=== PATIENT | male | born 1970 | race Caucasian/White ===

== ENCOUNTER → 2022-03-14 13:06 | Outpatient (REF) | payer MEDICARE, MEDICAID, SELFPAY | LOC: HO.SL 13:06 | PROVIDERS: Visit Provider Hospitalist | DX: Z13.89 Encounter for screening for other disorder (principal) ==

== ENCOUNTER → 2022-11-29 15:06 | Outpatient (REF) | payer MEDICAID, SELFPAY | LOC: HO.SL 15:06 | PROVIDERS: PCP Hospitalist; Visit Provider Hospitalist | DX: G47.33 Obstructive sleep apnea (adult) (pediatric) (principal); R06.83 Snoring | CPT/HCPCS: 95806 ==

== ENCOUNTER → 2022-12-28 19:30 | Outpatient (REF) | payer MEDICAID, SELFPAY | LOC: HO.SL 19:30 | PROVIDERS: PCP Hospitalist; Visit Provider Hospitalist | DX: G47.33 Obstructive sleep apnea (adult) (pediatric) (principal) | CPT/HCPCS: 95811 ==

== ENCOUNTER 2023-05-28 07:45 | Outpatient (AMB) | payer MEDICAID, SELFPAY ==
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
[2023-05-28 08:05] VITALS: BP 119/76; PULSE 80; BMI 34.2
== END 2023-05-28 08:52 | disposition home or self-care (01) ==
PROVIDERS: PCP Hospitalist; Visit Provider Nurse Practitioner Family
DX: Z12.11 Encounter for screening for malignant neoplasm of colon (principal); Z01.818 Encounter for other preprocedural examination
CPT/HCPCS: 99203

== ENCOUNTER → 2023-05-28 07:45 | Outpatient (BNVA) | payer MEDICAID, SELFPAY | PROVIDERS: PCP Hospitalist; Visit Provider Nurse Practitioner Family | DX: Z12.11 Encounter for screening for malignant neoplasm of colon (principal) | CPT/HCPCS: 99212 ==

== ENCOUNTER 2023-08-30 09:45 | Day surgery (SDC) | payer MEDICARE, MEDICAID, SELFPAY ==
[2023-08-28 14:27] VITALS: BMI 33.8
--- NOTE | 2023-08-29 12:40 | P.CONAN_ITS ---
Documented by User: Wendy Finn NP 08/29/23 12:40 HPI - Anesthesia Eval Consult details Narrative: 53yo M for Colonoscopy [facility] resident Anesthesia Pre-Procedure Meds Is the patient on any of the following meds?: Dulaglutide (Trulicity) [facility] Active Problems Active Problems: All Active Problems (Updated 08/28/23 @ 14:26 by Araceli Fatima RN) Personal history of traumatic brain injury (Acute) Frontal lobe and executive function deficit (Acute) Past Medical History Medical History Resides in detention facility Low back pain Slow transit constipation Benign localized hyperplasia of prostate Snoring Hypermetropia, bilateral Presbyopia Other hyperlipidemia Age-related nuclear cataract, bilateral Type 2 diabetes mellitus Hypothyroidism Obstructive sleep apnea Spinal stenosis Cocaine abuse Alcohol abuse Restlessness and agitation Personal history of other diseases of the respiratory system Personal history of healed traumatic fracture Personal history of traumatic brain injury 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 If so, by whom?: No Are you DNR?: No Advance Directives: Yes (guardianship) Advance Directives Information Provided: Yes Advance Directives on File: Yes Advance Directives Date on File: 08/28/23 Recently lost weight without trying: No Eating poorly because of decreased appetite: No Nutrition Risks: No Nutritional Risk Meds Allergies Allergy/AdvReac Type Severity Reaction Status Date / Time almond Allergy Mild Hives Verified 08/30/23 10:18 peach Allergy Mild Hives Verified 08/30/23 10:18 Home Medications Medication Instructions Recorded Confirmed Last Taken Type acetaminophen 325 mg capsule 325 mg PO QID PRN Pain 05/28/23 08/28/23 Unknown History atorvastatin 10 mg tablet (Lipitor) 10 mg PO DAILY 05/28/23 08/28/23 Unknown History calcium carbonate 500 mg calcium 500 mg PO DAILY 05/28/23 08/28/23 Unknown History (1,250 mg) chewable tablet divalproex 250 mg tablet,delayed 250 mg PO BEDTIME 05/28/23 08/28/23 Unknown History release divalproex 500 mg tablet,delayed 500 mg PO BID 05/28/23 08/28/23 Unknown History release dulaglutide 0.75 mg/0.5 mL 0.75 mg subcut QWEEK 05/28/23 08/28/23 Unknown History subcutaneous pen injector (Trulicity) gemfibrozil 600 mg tablet 600 mg PO BID 05/28/23 08/28/23 Unknown History insulin glargine 100 unit/mL 20 unit subcut BID 05/28/23 08/28/23 Unknown History subcutaneous solution (Lantus U-100 Insulin) insulin lispro 100 unit/mL 1 sliding scale dose subcut 05/28/23 08/28/23 Unknown History subcutaneous solution (Humalog USEASDIRECTD U-100 Insulin) levothyroxine 25 mcg tablet 25 mcg PO DAILY 05/28/23 08/28/23 Unknown History (Synthroid) metformin 1,000 mg tablet 1,000 mg PO DAILY 05/28/23 08/28/23 Unknown History omeprazole 20 mg capsule,delayed 20 mg PO DAILY 05/28/23 08/28/23 Unknown History release propranolol 60 mg capsule,24 60 mg PO DAILY 05/28/23 08/28/23 Unknown History hr,extended release (Inderal LA) sennosides 8.6 mg tablet (senna) 8.6 mg PO DAILY 05/28/23 08/28/23 Unknown History sodium phosphates 19 gram-7 118 ml MO BEDTIME PRN Constipation 05/28/23 08/28/23 Unknown History gram/118 mL enema (Fleet Enema) tamsulosin 0.4 mg capsule 0.4 mg PO DAILY 05/28/23 08/28/23 Unknown History trazodone 100 mg tablet 100 mg PO BEDTIME PRN Insomnia 05/28/23 08/28/23 Unknown History Exam Height,Weight and Vital Signs: Height 6 ft Weight 112.945 kg Assessment and Plan Assessment Anesthesia Assessment: Chart Reviewed Documented by User: Jeannie Boo MD 08/30/23 10:31 HPI - Anesthesia Eval Anesthesia Pre-Procedure Meds If Yes to any meds - educate patient: Pt education - increased risk of aspiration and Pt education - possibility of cancelled proc at provider's discretion PMFSH Past Medical History Medical History Resides in detention facility Low back pain Slow transit constipation Benign localized hyperplasia of prostate Snoring Hypermetropia, bilateral Presbyopia Other hyperlipidemia Age-related nuclear cataract, bilateral Type 2 diabetes mellitus Hypothyroidism Obstructive sleep apnea Spinal stenosis Cocaine abuse Alcohol abuse Restlessness and agitation Personal history of other diseases of the respiratory system Personal history of healed traumatic fracture Personal history of traumatic brain injury 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 If so, by whom?: No Are you DNR?: No Advance Directives: Yes (guardianship) Advance Directives Information Provided: Yes Advance Directives on File: Yes Advance Directives Date on File: 08/28/23 Recently lost weight without trying: No Eating poorly because of decreased appetite: No Nutrition Risks: No Nutritional Risk Meds Allergies Allergy/AdvReac Type Severity Reaction Status Date / Time almond Allergy Mild Hives Verified 08/30/23 10:18 peach Allergy Mild Hives Verified 08/30/23 10:18 Home Medications Medication Instructions Recorded Confirmed Last Taken Type acetaminophen 325 mg capsule 325 mg PO QID PRN Pain 05/28/23 08/28/23 Unknown History atorvastatin 10 mg tablet (Lipitor) 10 mg PO DAILY 05/28/23 08/28/23 Unknown History calcium carbonate 500 mg calcium 500 mg PO DAILY 05/28/23 08/28/23 Unknown History (1,250 mg) chewable tablet divalproex 250 mg tablet,delayed 250 mg PO BEDTIME 05/28/23 08/28/23 Unknown History release divalproex 500 mg tablet,delayed 500 mg PO BID 05/28/23 08/28/23 Unknown History release dulaglutide 0.75 mg/0.5 mL 0.75 mg subcut QWEEK 05/28/23 08/28/23 Unknown History subcutaneous pen injector (Trulicity) gemfibrozil 600 mg tablet 600 mg PO BID 05/28/23 08/28/23 Unknown History insulin glargine 100 unit/mL 20 unit subcut BID 05/28/23 08/28/23 Unknown History subcutaneous solution (Lantus U-100 Insulin) insulin lispro 100 unit/mL 1 sliding scale dose subcut 05/28/23 08/28/23 Unknown History subcutaneous solution (Humalog USEASDIRECTD U-100 Insulin) levothyroxine 25 mcg tablet 25 mcg PO DAILY 05/28/23 08/28/23 Unknown History (Synthroid) metformin 1,000 mg tablet 1,000 mg PO DAILY 05/28/23 08/28/23 Unknown History omeprazole 20 mg capsule,delayed 20 mg PO DAILY 05/28/23 08/28/23 Unknown History release propranolol 60 mg capsule,24 60 mg PO DAILY 05/28/23 08/28/23 Unknown History hr,extended release (Inderal LA) sennosides 8.6 mg tablet (senna) 8.6 mg PO DAILY 05/28/23 08/28/23 Unknown History sodium phosphates 19 gram-7 118 ml MO BEDTIME PRN Constipation 05/28/23 08/28/23 Unknown History gram/118 mL enema (Fleet Enema) tamsulosin 0.4 mg capsule 0.4 mg PO DAILY 05/28/23 08/28/23 Unknown History trazodone 100 mg tablet 100 mg PO BEDTIME PRN Insomnia 05/28/23 08/28/23 Unknown History Exam Airway Mallampati Class: III TM Dist: <=3cm Neck ROM: Limited Heart: rrr Lungs: cta Assessment and Plan Assessment Anesthesia Assessment: Anesthesia Plan Discussed (pt with TBI) Final Anesthetic Review Family History of Problems with Anesthesia: No History of Problems with Anesthesia: No NPO: Yes ASA Class: III Final Preanesthetic Review: No Changes in Pt Med Stat, Meds/Allgs Chart Reviewed, Consent Obtained/Reviewed and Anes Risks/Benef Reviewed Patient Risk: Intermediate Procedure Risk: Low Anesthetic Plan Anesthetic Plan: MAC: Disposition: Standard PACU
--- NOTE | 2023-08-30 10:16 | MHC.SHP ---
Pre-Procedural Eval Section A Date of Service: 08/30/23 The patient is an INPATIENT: No The History & Physical has been completed within 30 days and I have reviewed it.: No Section B Chief Complaint: screening Relevant Family History (Specify if Yes): No Relevant Social History: None Present Medications: see Short Stay Collaborative assessment Medical History: Significant History (Low back pain Slow transit constipation Benign localized hyperplasia of prostate Snoring Hypermetropia, bilateral Presbyopia Other hyperlipidemia Age-related nuclear cataract, bilateral Type 2 diabetes mellitus Hypothyroidism Obstructive sleep apnea Spinal stenosis Cocaine abuse Alcohol abuse Restle) History of Previous Operations: Relevant previous surgery/procedure and date(s) (History of craniotomy History of partial colectomy) Allergies: Allergies Allergy/AdvReac Type Severity Reaction Status Date / Time almond Allergy Mild Hives Verified 08/28/23 14:08 peach Allergy Mild Hives Verified 08/28/23 14:08 Review of Systems Sugical H&P ROS: Negative: Constitution, Cardiovascular and Gastrointestinal and Yes, Specify: Neurological (traumatic brain injury) Exam Surgical H&P Exam: Normal: Heart, Normal: Lungs, Normal: Extremities and Normal: Abdomen Plan Diagnosis/Plan: Unchanged I have reviewed the history and physical and performed a pertinent physical examination on my patient. No changes have occurred unless specified. Time Spent With Patient Time: Total time managing care of this patient today ____ minutes.
[2023-08-30 10:36] VITALS: BP 125/91; PULSE 78; RESP 16; TEMP 36.1; O2SAT 96
[2023-08-30] MEDS: Lactated Ringers 1,000 ML 100 ML IVCONT (10:38)
[2023-08-30 10:42] LABS: Glucose, Whole Blood 163 mg/dL (60-115)
--- NOTE | 2023-08-30 11:26 | PC.NURSE ---
Verbal consent obtained by Arlin ZHOU. This service writer was a witness for both the anesthesia as well as surgical consent.
--- NOTE | 2023-08-30 11:28 | P.OP_ITS ---
Operative Note Operative Note Date of Service: 08/30/23 Narrative: COLONOSCOPY TILL CECUM WITH SNARE POLYPECTOMY Pre-op diagnosis: Colon cancer screening Post-op diagnosis:? Colon polyps, diverticulosis, hemorrhoids Endoscopist:? Robert Cassidy MD Anesthesia:?MAC Consent: Indications for the procedure and potential complications of bleeding, perforation, reaction to medications and missed diagnosis were discussed with the Arlin Coleman, patient's and HCP, (Tel # [phone]) over the phone and informed verbal consent was obtained. Instrument: Olympus CF H 190 L variable stiffness adult colonoscope Monitoring: Vital signs and clinical assessment, intermittent blood pressure monitoring, continuous EKG monitoring, Pulse oximetry and Carbon Dioxide monitoring were done throughout the procedure. Please see anesthesia flowsheet. Colon withdrawl time was 19 minutes. Procedure: The patient was placed in the left lateral decubitis position and pre-procedure medications were administered. After a digital rectal examination of the ano-rectum, the video colonoscope was inserted into the rectum and advanced through the colon to the cecum. The colonoscope was slowly withdrawn in a retrograde panoramic fashion and the colon mucosa was carefully examined including a retroflexed view of the rectum. Findings and interventions are described below. Procedure Difficulty: Without difficulty Findings: Terminal Ileum: Distal 4-5 cms was examined and appeared normal Cecum: Normal Ascending Colon: Normal Transverse Colon: A 3-4 mm sessile polyp - removed with a cold snare Descending Colon: A 10-12 mm sessile polyp - removed with a hot snare Moderate diverticulosis Sigmoid Colon: Normal appearing end to side anastomosis at 25 to 30 cms Rectum: Normal Ano-rectum: Moderate internal hemorrhoids Colon preparation: Good after some irrigation [place] Bowel Preparation Scale Right colon; 3 Transverse colon: 3 Left colon; 3 (0 = Unprepared colon segment with mucosa not seen due to solid stool that cannot be cleared. 1 = Portion of mucosa of the colon segment seen, but other areas of the colon segment not well seen due to staining, residual stool and/or opaque liquid. 2 = Minor amount of residual staining, small fragments of stool and/or opaque liquid, but mucosa of colon segment seen well. 3 = Entire mucosa of colon segment seen well with no residual staining, small fragments of stool or opaque liquid) Impression and Post Procedure Diagnosis: Colonoscopy Findings: One small and one medium sized polyps removed Normal appearing end to side anastomosis at 25 to 30 cms Moderate diverticulosis seen in the left colon Moderate hemorrhoids on retroflexed exam. Plan: Await pathology results Patient has an appointment on 09/13/23 in the GI [facility] with Alicia Golden FNP- [facility]. Repeat Colonoscopy interval based on path results - in 3-5 years if polyps are adenomatous and 10 years if polyps are hyperplastic. Colon polyps and diverticulosis handouts were given in the discharge area
[2023-08-30 12:21] VITALS: BP 98/70; PULSE 80; RESP 16; TEMP 36.3; O2SAT 96
[2023-08-30 12:36] VITALS: BP 116/78; PULSE 73; RESP 20; TEMP 36.3; O2SAT 97
== END 2023-08-30 13:06 | disposition home or self-care (01) ==
PROVIDERS: PCP Hospitalist; Visit Provider Internal Medicine Gastroenterology
PROC: 0DJD8ZZ Inspection of Lower Intestinal Tract, Via Natural or Artificial Opening Endoscopic (ICD-10-PCS; CPT 45378; principal; 2023-08-30 12:10)
DX: Z12.11 Encounter for screening for malignant neoplasm of colon (principal); D12.3 Benign neoplasm of transverse colon; K63.5 Polyp of colon; K57.30 Diverticulosis of large intestine without perforation or abscess without bleeding; K64.8 Other hemorrhoids; D29.1 Benign neoplasm of prostate; K59.01 Slow transit constipation; M54.50 Low back pain, unspecified; G47.33 Obstructive sleep apnea (adult) (pediatric); R06.83 Snoring; E03.9 Hypothyroidism, unspecified; E78.5 Hyperlipidemia, unspecified; E11.9 Type 2 diabetes mellitus without complications; M48.00 Spinal stenosis, site unspecified; R45.1 Restlessness and agitation; F14.10 Cocaine abuse, uncomplicated; F10.10 Alcohol abuse, uncomplicated; Z90.49 Acquired absence of other specified parts of digestive tract; Z98.0 Intestinal bypass and anastomosis status; Z79.899 Other long term (current) drug therapy; Z79.4 Long term (current) use of insulin; Z79.84 Long term (current) use of oral hypoglycemic drugs; Z79.85 Long-term (current) use of injectable non-insulin antidiabetic drugs; Z87.820 Personal history of traumatic brain injury
CPT/HCPCS: 45385; 82947; 88305; J1100; J2704

== ENCOUNTER → 2023-08-30 09:45 | Outpatient (BNV) | payer MEDICARE, MEDICAID, SELFPAY | PROVIDERS: PCP Hospitalist; Visit Provider Internal Medicine Gastroenterology | DX: Z12.11 Encounter for screening for malignant neoplasm of colon (principal); D12.3 Benign neoplasm of transverse colon; D12.4 Benign neoplasm of descending colon; K64.8 Other hemorrhoids | CPT/HCPCS: 45385 ==

== ENCOUNTER 2023-09-18 13:38 | Outpatient (AMB) | payer MEDICARE, MEDICAID, SELFPAY ==
--- NOTE | 2023-09-18 14:06 | A.OFFVIS_ITS ---
Intake Intake Visit Reasons: BPH Intake Note: NEW Patient presents today to established treatment for BPH: Meds- Tamsulosin Allergies to Antibiotic- No Known Allergies Blood Thinner- None Post Void Residual: 102 mL [employer] Placing Supervisor Required: No Accompanied by: [facility] Staff Allergies almond Allergy (Mild, Verified 09/18/23 14:08) Hives peach Allergy (Mild, Verified 09/18/23 14:08) Hives HPI HPI Comments History of Present Illness Details Rubén is a 53-year-old male who is here for evaluation for frequent urination at night and BPH. Past Medical history includes traumatic brain injury. The patient resides in a assisted living facility. The patient complains of Getting up at night 2-3 times. He denies urinary incontinence he denies wearing a pad, he denies burning with urination or gross hematuria. Comorbidity diabetes, OLIMPIA. The patient is currently prescribed tamsulosin. I have discussed workup to include evaluation of the urinary tract with renal ultrasound On evaluation today: The patient was unable to give a urine specimen. Bladder scan was 102 mL prostate exam-smooth, no suspicious nodules Plan: Ultrasound retroperitoneum [facility] Medical History Resides in halfway facility Low back pain Slow transit constipation Benign localized hyperplasia of prostate Snoring Hypermetropia, bilateral Presbyopia Other hyperlipidemia Age-related nuclear cataract, bilateral Type 2 diabetes mellitus Hypothyroidism Obstructive sleep apnea Spinal stenosis Cocaine abuse Alcohol abuse Restlessness and agitation Personal history of other diseases of the respiratory system Personal history of healed traumatic fracture Personal history of traumatic brain injury 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 Surgical History H/O colonoscopy History of craniotomy History of partial colectomy Social History Housing Other:: [facility] Patient Tobacco Use Status: Tobacco use Unknown Advance Directives Date on File: 08/28/23 Review of Systems Const All systems reviewed & are unremarkable except as noted in HPI and below Reports no additional complaints Eyes Reports no additional complaints ENT Reports no additional complaints Card Denies dyspnea Resp Denies cough and Denies dyspnea GI Reports no additional complaints Musc Reports no additional complaints Skin/Breast Denies rash and Denies unusual bruising Neuro Reports no additional complaints Psych Reports no additional complaints Endo Reports no additional complaints Deon/Lymph Reports no additional complaints Aller/Immun Reports no additional complaints Physical Exam Const General: healthy appearing, no acute distress and well developed Orientation/consciousness: patient oriented x3 HEENT Head: Yes normocephalic and Yes atraumatic Eyes Conjunctivae: conjunctivae normal Neck Neck: Yes normal visual inspection Chest Chest palpation & inspection: normal inspection of the chest Resp Effort & Inspection: normal respiratory effort Cardio Rate: regular rate GI Inspection: Yes normal to inspection Palpation (GI): Soft to palpation Other: Prostate Exam: smooth, not enlarged, no suspicious nodules Penis: normal penis Scrotum: scrotum normal Skin General skin exam: no rashes or lesions noted Neuro General: patient oriented x3 Extrem General: No pedal edema Psych Appearance: grossly normal Affect: normal affect Assessment & Plan Assessment & Plan (1) Nocturia: Code(s): R35.1 - Nocturia (2) Personal history of traumatic brain injury: Code(s): Z87.820 - Personal history of traumatic brain injury Plan US retroperitoneal comp Cont tamsulosin fu in 8 weeks Orders: Orders AMB Urinalysis Automated Today Z13.9 - Encounter for screening, unspecified US retroperitoneal comp 4 Weeks R35.1 - Nocturia AMB Post Void Residual by ultrasound Today N39.8 - Other specified disorders of urinary system Patient Instructions: The patient had an opportunity to ask questions regarding treatment plan. All questions were answered. Imaging, Physical exam results were discussed and reviewed in detail. No major barriers to understanding were identified. The patient expressed understanding and agreement with the above treatment plan. The patient is aware they should contact our office by phone for worsening of their current condition or the appearance of new symptoms. Compliance is encouraged with any medications and followup testing that is ordered. It is a privilege to be allowed the opportunity to participate in the urologic care of your patient. If you have any questions or concerns regarding treatment for the above conditions please do not hesitate to contact me. The office telephone contact is [phone]. This note is constructed in part using voice recognition software. While every effort has been made to ensure accuracy engineering geologist errors may have been included. Yours sincerely, Frederick Baez MD Coding Level of Care Code New Pt Level 4 (93741) Diagnoses Nocturia R35.1 Personal history of traumatic brain injury Z87.820
== END 2023-09-18 14:57 | disposition home or self-care (01) ==
PROVIDERS: PCP Hospitalist; Visit Provider Urology
DX: R35.1 Nocturia (principal); Z87.820 Personal history of traumatic brain injury
CPT/HCPCS: 99204

== ENCOUNTER → 2023-09-18 13:38 | Outpatient (BNVA) | payer MEDICARE, MEDICAID, SELFPAY | PROVIDERS: PCP Hospitalist; Visit Provider Urology | DX: R35.1 Nocturia (principal); Z87.820 Personal history of traumatic brain injury | CPT/HCPCS: 99202 ==

== ENCOUNTER 2023-10-11 12:39 | Outpatient (AMB) | payer MEDICAID, SELFPAY ==
[2023-10-11 12:49] VITALS: BP 109/81; PULSE 90; BMI 33.9
--- NOTE | 2023-10-11 12:49 | MHC.OFFVIS ---
Intake Vital Signs 10/11/23 12:49 Height 6 ft Weight 250 lb 0.067 oz BMI 33.9 BP 109/81 Blood Pressure Location Rt brachial Position Sitting Pulse 90 Intake Visit Reasons: S/p colon Intake Note: Patient returns to in office visit today in follow up s/p colonoscopy. CC: Doing well, denies having any GI concerns or symptoms today. Patient underwent colonoscopy on 08/[address] Cassidy. Senior Research Manager Required: No Allergies No Known Drug Allergies Allergy (Severe, Verified 10/11/23 12:56) Unknown almond Allergy (Mild, Verified 10/11/23 12:56) Hives peach Allergy (Mild, Verified 10/11/23 12:56) Hives HPI S/p colon HPI Details LAST VISIT Screen for colon cancer Patient denies any cardiac or respiratory symptoms.? History of umbilical hernia repair and partial colectomy. Patient had emergency colectomy 5-7 years ago while recovering from post umbilical hernia repair. Patient reports that he had severe diverticulitis, ruptured bowel and needed emergency colon resection. Patient reports that he is moving his bowels every other day. Had colonoscopy when he had his colectomy. Denies any issues with anesthesia in the past.? History of sleep apnea uses CPAP at night.? No history infectious diseases in the past or present.? Not on any anticoagulation therapy.? No family or personal history of colon cancer or polyps.? Patient denies melena, hematochezia, unintentional weight loss or ribbon like stools.? Discussed at length the pre-procedure,? prep, diet & medications as well as what to expect prior, during and after the procedure.?? Stressed the importance of good bowel prep. ?Recommended the use of Vaseline or Calmoseptine OTC & baby wipes with bowel movements to promote comfort.? ?Patient verbalizes understanding and agrees to plan of care.? He was given the opportunity to ask questions and all questions answered.? We will see him after the procedure.? Plan Medications New polyethylene glycol 3350 (Miralax) As directed by gastroenterology department at [facility] 238 grams PO ONCE 238 grams 0RF Z12.11 bisacodyl (Dulcolax (bisacodyl)) take 2 tabs at noon the day before your colonoscopy 10 mg (2 x 5 mg) PO ONCE 1 day 2 tabs 0RF Z12.11 COLONOSCOPY Findings: Terminal Ileum: Distal 4-5 cms was examined and appeared normal Cecum: Normal Ascending Colon: Normal Transverse Colon: A 3-4 mm sessile polyp - removed with a cold snare Descending Colon: A 10-12 mm sessile polyp - removed with a hot snare Moderate diverticulosis Sigmoid Colon: Normal appearing end to side anastomosis at 25 to 30 cms Rectum: Normal Ano-rectum: Moderate internal hemorrhoids Colon preparation: Good after some irrigation [place] Bowel Preparation Scale Right colon; 3 Transverse colon: 3 Left colon; 3 (0 = Unprepared colon segment with mucosa not seen due to solid stool that cannot be cleared. 1 = Portion of mucosa of the colon segment seen, but other areas of the colon segment not well seen due to staining, residual stool and/or opaque liquid. 2 = Minor amount of residual staining, small fragments of stool and/or opaque liquid, but mucosa of colon segment seen well. 3 = Entire mucosa of colon segment seen well with no residual staining, small fragments of stool or opaque liquid) Impression and Post Procedure Diagnosis: Colonoscopy Findings: One small and one medium sized polyps removed Normal appearing end to side anastomosis at 25 to 30 cms Moderate diverticulosis seen in the left colon Moderate hemorrhoids on retroflexed exam. Plan: Await pathology results Patient has an appointment on 09/13/23 in the GI Clinic with Alicia Golden FNP-BC. Repeat Colonoscopy interval based on path results - in 3-5 years if polyps are adenomatous and 10 years if polyps are hyperplastic. PATHOLOGY RESULTS Diagnosis A. Colon, transverse, polyp: Tubular adenoma; negative for high-grade dysplasia and carcinoma. B. Colon, descending, polyp: Minute fragment of colonic mucosa with marked thermal/crush artifact, cannot exclude adenoma; no high-grade dysplasia or carcinoma identified TODAY'S VISIT: Patient is here to follow-up and to discuss colonoscopy results. Patient denies any ill effects from the prep, anesthesia or procedure itself. Patient had excellent prep, 1 tubular adenoma found in transverse polyp. Biopsy was negative for high-grade dysplasia and carcinoma. Patient denies any GI concerning symptoms continue to move his bowels daily or every other day. Denies melena, hematochezia, unintentional weight loss or ribbon like stools. Patient denies any dyspepsia, dysphagia or odynophagia. Diverticulosis and hemorrhoids found on colonoscopy. [facility] Medical History (Updated 10/11/23 @ 13:21 by Alicia Golden, [facility]) Internal hemorrhoids without complication Diverticulosis Tubular adenoma of colon Resides in custodial facility Low back pain Slow transit constipation Benign localized hyperplasia of prostate Snoring Hypermetropia, bilateral Presbyopia Other hyperlipidemia Age-related nuclear cataract, bilateral Type 2 diabetes mellitus Hypothyroidism Obstructive sleep apnea Spinal stenosis Cocaine abuse Alcohol abuse Restlessness and agitation Personal history of other diseases of the respiratory system Personal history of healed traumatic fracture Personal history of traumatic brain injury 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 Surgical History H/O colonoscopy History of craniotomy History of partial colectomy Social History Housing Other:: [facility] Patient Tobacco Use Status: Tobacco use Unknown Advance Directives Date on File: 08/28/23 Review of Systems Const Denies weight gain and Denies weight loss ENT Reports no additional complaints, Denies dysphagia and Denies odynophagia Card Reports no additional complaints Resp Reports no additional complaints GI Denies abdominal pain, Denies belching, Denies melena, Denies bloating, Denies change in bowel habits, Denies dysphagia, Denies excessive flatus, Denies dyspepsia, Denies heartburn, Denies diarrhea, Denies loose stools, Denies nausea, Denies odynophagia and Denies vomiting Reports no additional complaints Musc Reports no additional complaints Neuro Reports no additional complaints Psych Reports no additional complaints Endo Reports no additional complaints Physical Exam Vital Signs: Last Vital Signs Pulse 90 10/11/23 12:49 BP 109/81 10/11/23 12:49 BMI result Body Mass Index 33.9 Const General: healthy appearing, no acute distress and well developed Nutritional Appearance: obese Orientation/consciousness: patient oriented x3 Resp Effort & Inspection: normal respiratory effort, able to speak in complete sentences, no tracheal deviation and symmetric chest movement Auscultation: clear to auscultation bilaterally Cardio Rate: regular rate GI Inspection: No distended, Yes obesity and Yes scar Palpation (GI): Soft to palpation, not firm, nontender and No hepatosplenomegaly present Auscultation: normal bowel sounds General: Yes no CVA tenderness Back/Spine/Pelvis Back: no CVA tenderness Skin General skin exam: elasticity normal, turgor normal and dry skin Neuro General: patient oriented x3 Psych Appearance: grossly normal Mental Status: mental status grossly normal Assessment & Plan Assessment & Plan (1) Tubular adenoma of colon: Code(s): D12.6 - Benign neoplasm of colon, unspecified (2) Diverticulosis: Code(s): K57.90 - Diverticulosis of intestine, part unspecified, without perforation or abscess without bleeding (3) Internal hemorrhoids without complication: Code(s): K64.8 - Other hemorrhoids (4) Status post colonoscopy: Code(s): Z98.890 - Other specified postprocedural states Plan One small tubular adenoma found in transverse colon. Colonoscopy in 5 years, sooner if clinically necessary. Patient had moderate diverticulosis of sigmoid colon and moderate hemorrhoids. Encouraged to increase fiber in his diet. List of food high in fiber given to patient so he can bring it to [facility] and give it to [facility] staff. Patient will follow-up with our office on as needed basis. Both patient and MATERIALS PLANNER/PRODUCTION PLANNER who is accompanied patient are agreeable to plan of care and verbalizes understanding of instructions. They were given the opportunity to ask questions and all questions answered. Thank you for allowing me to participate in his care Coding Level of Care Code Est Pt Level 3 (31425) Diagnoses Tubular adenoma of colon D12.6 Diverticulosis K57.90 Internal hemorrhoids without complication K64.8 Status post colonoscopy Z98.890 Time Spent (min) 25 Comment 15 minutes spent with patient and additional 10 minutes spent reviewing his records
== END 2023-10-11 13:11 | disposition home or self-care (01) ==
PROVIDERS: PCP Hospitalist; Visit Provider Nurse Practitioner Family
DX: D12.6 Benign neoplasm of colon, unspecified (principal); K57.90 Diverticulosis of intestine, part unspecified, without perforation or abscess without bleeding; K64.8 Other hemorrhoids; Z98.890 Other specified postprocedural states
CPT/HCPCS: 99213

== ENCOUNTER → 2023-10-11 12:39 | Outpatient (BNVA) | payer MEDICARE, MEDICAID, SELFPAY | PROVIDERS: PCP Hospitalist; Visit Provider Nurse Practitioner Family | DX: D12.6 Benign neoplasm of colon, unspecified (principal); K57.90 Diverticulosis of intestine, part unspecified, without perforation or abscess without bleeding; K64.8 Other hemorrhoids; Z98.890 Other specified postprocedural states | CPT/HCPCS: 99212 ==

== ENCOUNTER 2023-10-15 13:44 | Outpatient (REF) | payer MEDICARE, MEDICAID, SELFPAY ==
--- NOTE | ~2023-10-15 | US_ITS ---
EXAMINATION: US RETROPERITONEAL COMPLETE (RENAL) CLINICAL INFORMATION: Nocturia. COMPARISON: None available. TECHNIQUE: Real-time imaging of the kidneys and bladder. FINDINGS: RIGHT KIDNEY: 13.4 x 6.4 x 5.7 cm (SAG x AP x TRV). The kidney is normal in size, contour, and echogenicity. Renal cortical thickness is normal. No calculi or focal parenchymal lesions. No hydronephrosis. LEFT KIDNEY: 13.5 x 6.7 x 5.7 cm (SAG x AP x TRV). The kidney is normal in size, contour, and echogenicity. Renal cortical thickness is normal. No calculi or focal parenchymal lesions. No hydronephrosis. BLADDER: Well distended and normal. Bilateral ureteral jets are demonstrated. Prevoid bladder volume is 184 mL. Postvoid bladder volume is 32 mL. ADDITIONAL FINDINGS: Prostate dimensions are 3.4 x 3.8 x 4.3 cm (volume 28.9 mL). US/US retroperitoneal comp IMPRESSION: Unremarkable examination.
== END 2023-10-15 13:45 | disposition home or self-care (01) ==
LOC: HO.US 13:44
PROVIDERS: Visit Provider Urology
DX: R35.1 Nocturia (principal)
CPT/HCPCS: 76770

== ENCOUNTER 2023-11-12 13:44 | Outpatient (AMB) | payer MEDICARE, MEDICAID, SELFPAY ==
--- NOTE | 2023-11-12 13:51 | A.OFFVIS_ITS ---
Intake Intake Visit Reasons: 8w/US Intake Note: Patient presents today for US Results: Meds- Tamsulosin Allergies to Antibiotic- No Known Allergies Blood Thinner- None Facility Rehab Director Required: No Accompanied by: [facility] Staff Allergies No Known Drug Allergies Allergy (Severe, Verified 11/12/23 13:52) Unknown almond Allergy (Mild, Verified 11/12/23 13:52) Hives peach Allergy (Mild, Verified 11/12/23 13:52) Hives Medication List - Last Reconciled 11/12/23 by Frederick Baez MD acetaminophen 325 mg PO QID PRN atorvastatin (Lipitor) 10 mg PO DAILY calcium carbonate 500 mg PO DAILY divalproex 250 mg PO BEDTIME divalproex 500 mg PO BID dulaglutide (Trulicity) 0.75 mg subcut QWEEK gemfibrozil 600 mg PO BID insulin glargine (Lantus U-100 Insulin) 30 units subcut BID insulin lispro (Humalog U-100 Insulin) 1 sliding scale dose subcut USEASDIRECTD levothyroxine (Synthroid) 25 mcg PO DAILY metformin 1,000 mg PO DAILY omeprazole 20 mg PO DAILY propranolol ER mg PO sennosides (senna) 8.6 mg PO DAILY sodium phosphates 19-7 gram/118 mL (Fleet Enema) 118 mL [place] BEDTIME PRN tamsulosin 0.4 mg PO DAILY trazodone 100 mg PO BEDTIME PRN HPI HPI Comments History of Present Illness Details 11/12/2023--Rubén is a 53-year-old male wit h history of traumatic brain injury who resides in assisted living facility. He is on tamsulosin was BPH symptoms. Past medical history includes diabetes and obstructive sleep apnea. He is here to review renal ultrasound results with as discussed with the patient in since consult notes reviewed ultrasound results which are normal. 10/15/23---KIDNEYS- No calculi or focal parenchymal lesions. No hydronephrosis. BLADDER: Well distended and normal. Bilateral ureteral jets are demonstrated. Prevoid bladder volume is 184 mL. Postvoid bladder volume is 32 mL. Review of chart: 09/18/2023--Rubén is a 53-year-old male w ho is here for evaluation for frequent urination at night and BPH. Past Medical history includes traumatic brain injury. The patient resides in a assisted living facility. The patient complains of Getting up at night 2-3 times. He denies urinary incontinence he denies wearing a pad, he denies burning with urination or gross hematuria. Comorbidity diabetes, OLIMPIA. The patient is currently prescribed tamsulosin. I have discussed workup to include evaluation of the urinary tract with renal ultrasound On evaluation today: The patient was unable to give a urine specimen. Bladder scan was 102 mL prostate exam-smooth, no suspicious nodules. Plan: Ultrasound retroperitoneum 11/12/2023--PLAN: Continue tamsulosin. Follow-up in 1 year. PSA screening 31 minutes spent in review of chart to r eview the records for this visit and in documentation of the record and in face to face discussion with this patient. [facility] Medical History Internal hemorrhoids without complication Diverticulosis Tubular adenoma of colon Resides in intermediate facility Low back pain Slow transit constipation Benign localized hyperplasia of prostate Snoring Hypermetropia, bilateral Presbyopia Other hyperlipidemia Age-related nuclear cataract, bilateral Type 2 diabetes mellitus Hypothyroidism Obstructive sleep apnea Spinal stenosis Cocaine abuse Alcohol abuse Restlessness and agitation Personal history of other diseases of the respiratory system Personal history of healed traumatic fracture Personal history of traumatic brain injury 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 Surgical History H/O colonoscopy History of craniotomy History of partial colectomy Social History Housing Other:: [facility] Patient Tobacco Use Status: Tobacco use Unknown Advance Directives Date on File: 08/28/23 Review of Systems Const All systems reviewed & are unremarkable except as noted in HPI and below Reports no additional complaints Eyes Reports no additional complaints ENT Reports no additional complaints Card Denies dyspnea Resp Denies cough and Denies dyspnea GI Reports no additional complaints Musc Reports no additional complaints Skin/Breast Denies rash and Denies unusual bruising Neuro Reports no additional complaints Psych Reports no additional complaints Endo Reports no additional complaints Deon/Lymph Reports no additional complaints Aller/Immun Reports no additional complaints Results Reviewed Results Reviewed: Date of Service: 10/15/23 EXAMINATION: US RETROPERITONEAL COMPLETE (RENAL) CLINICAL INFORMATION: Nocturia. COMPARISON: None available. TECHNIQUE: Real-time imaging of the kidneys and bladder. FINDINGS: RIGHT KIDNEY: 13.4 x 6.4 x 5.7 cm (SAG x AP x TRV). The kidney is normal in size, contour, and echogenicity. Renal cortical thickness is normal. No calculi or focal parenchymal lesions. No hydronephrosis. LEFT KIDNEY: 13.5 x 6.7 x 5.7 cm (SAG x AP x TRV). The kidney is normal in size, contour, and echogenicity. Renal cortical thickness is normal. No calculi or focal parenchymal lesions. No hydronephrosis. BLADDER: Well distended and normal. Bilateral ureteral jets are demonstrated. Prevoid bladder volume is 184 mL. Postvoid bladder volume is 32 mL. ADDITIONAL FINDINGS: Prostate dimensions are 3.4 x 3.8 x 4.3 cm (volume 28.9 mL). IMPRESSION: Unremarkable examination. Assessment & Plan Assessment & Plan (1) Nocturia: Code(s): R35.1 - Nocturia (2) Personal history of traumatic brain injury: Code(s): Z87.820 - Personal history of traumatic brain injury (3) Screening PSA (prostate specific antigen): Code(s): Z12.5 - Encounter for screening for malignant neoplasm of prostate Plan i Continue tamsulosin. Follow-up in 1 year. PSA screening Orders: Orders PSA,Total (Free>4and<10) 9 Months Z12.5 - Encounter for screening for malignant neoplasm of prostate Patient Instructions: The patient had an opportunity to ask questions regarding treatment plan. All questions were answered. Imaging, Laboratory studies and physical exam results were discussed and reviewed in detail. No major barriers to understanding were identified. The patient expressed understanding and agreement with the above treatment plan. The patient is aware they should contact our office by phone for worsening of their current condition or the appearance of new symptoms. Compliance is encouraged with any medications and followup testing that is ordered. It is a privilege to be allowed the opportunity to participate in the urologic care of your patient. If you have any questions or concerns regarding treatment for the above conditions please do not hesitate to contact me. The office telephone contact is [phone]. This note is constructed in part using voice recognition software. While every effort has been made to ensure accuracy weatherization and housing inspector errors may have been included. Yours sincerely, Frederick Baez MD Coding Level of Care Code Est Pt Level 4 (44359) Diagnoses Nocturia R35.1 Personal history of traumatic brain injury Z87.820 Screening PSA (prostate specific antigen) Z12.5 Time Spent (min) 31 Comment
== END 2023-11-12 14:07 | disposition home or self-care (01) ==
LOC: HO.HUSH 13:45
PROVIDERS: PCP Hospitalist; Visit Provider Urology
DX: R35.1 Nocturia (principal); Z87.820 Personal history of traumatic brain injury; Z12.5 Encounter for screening for malignant neoplasm of prostate
CPT/HCPCS: 99214

== ENCOUNTER → 2023-11-12 13:44 | Outpatient (BNVA) | payer MEDICARE, MEDICAID, SELFPAY | PROVIDERS: PCP Hospitalist; Visit Provider Urology | DX: R35.1 Nocturia (principal); Z12.5 Encounter for screening for malignant neoplasm of prostate; Z87.820 Personal history of traumatic brain injury | CPT/HCPCS: 99212 ==

== ENCOUNTER 2024-11-12 12:43 | Outpatient (AMB) | payer MEDICARE, MEDICAID, SELFPAY ==
--- NOTE | 2024-11-12 13:03 | MHC.OFFVIS ---
Intake Visit Reasons: 1y/PSA Intake Note: Patient presents today for 1y/PSA Meds- Tamsulosin Allergies to Antibiotic- NONE Blood Thinner- None TODAY'S PVR:102ML'S Impregnating Machine Operator Required: No Accompanied by: [facility] Allergies No Known Drug Allergies Allergy (Severe, Verified 11/12/24 13:04) Unknown almond Allergy (Mild, Verified 11/12/24 13:04) Hives peach Allergy (Mild, Verified 11/12/24 13:04) Hives HPI Comments Details: 11/12/24--Rubén is a 54-year-old male presenting with a follow-up for Benign Prostatic Hyperplasia (BPH). He has been treated with tamsulosin due to obstructive urinary symptoms. The patient also has a history of traumatic brain injury and resides in an assisted living facility. Current assessments show urine free from blood and infections, with a residual bladder volume of 102 mL. The patient experiences nocturia, urinating five times nightly, which he associates with his fluid intake of two bottles of water overnight. He was advised to moderate evening fluid consumption to manage symptoms better. Tamsulosin continues as part of his treatment plan, with periodic evaluations of blood work and PSA levels to assess BPH progression. Urinary Symptoms Review - Nocturia: Patient reports urinating five times per night. - Frequency of urination: Approximately every hour during the night. - Fluid intake: Consumes two bottles of water during the night. - Residual urine volume: 100 cc, as determined by bladder scan. - Urine appearance: Clear, with no blood or signs of infection present. Results - Bladder scan: Approximately 100 cc of residual urine. 11/12/2023--Rubén is a 53-year-old male with history of traumatic brain injury who resides in assisted living facility. He is on tamsulosin was BPH symptoms. Past medical history includes diabetes and obstructive sleep apnea. He is here to review renal ultrasound results with as discussed with the patient in since consult notes reviewed ultrasound results which are normal. 10/15/23---KIDNEYS- No calculi or focal parenchymal lesions. No hydronephrosis. BLADDER: Well distended and normal. Bilateral ureteral jets are demonstrated. Prevoid bladder volume is 184 mL. Postvoid bladder volume is 32 mL. 09/18/2023--Rubén is a 53-year-old male who is here for evaluation for frequent urination at night and BPH. Past Medical history includes traumatic brain injury. The patient resides in a assisted living facility. The patient complains of Getting up at night 2-3 times. He denies urinary incontinence he denies wearing a pad, he denies burning with urination or gross hematuria. Comorbidity diabetes, OLIMPIA. The patient is currently prescribed tamsulosin. I have discussed workup to include evaluation of the urinary tract with renal ultrasound On evaluation today: The patient was unable to give a urine specimen. Bladder scan was 102 mL prostate exam-smooth, no suspicious nodules. [facility] Medical History Internal hemorrhoids without complication Diverticulosis Tubular adenoma of colon Resides in intermediate facility Low back pain Slow transit constipation Benign localized hyperplasia of prostate Snoring Hypermetropia, bilateral Presbyopia Other hyperlipidemia Age-related nuclear cataract, bilateral Type 2 diabetes mellitus Hypothyroidism Obstructive sleep apnea Spinal stenosis Cocaine abuse Alcohol abuse Restlessness and agitation Personal history of other diseases of the respiratory system Personal history of healed traumatic fracture Personal history of traumatic brain injury 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 Surgical History H/O colonoscopy History of craniotomy History of partial colectomy Social History Housing Other:: [facility] Patient Tobacco Use Status: Tobacco use Unknown Advance Directives Date on File: 08/28/23 Review of Systems Const All systems reviewed & are unremarkable except as noted in HPI and below Reports no additional complaints Eyes Reports no additional complaints ENT Reports no additional complaints Card Reports no additional complaints Resp Reports no additional complaints GI Reports no additional complaints Reports as per HPI Musc Reports no additional complaints Skin/Breast Reports system reviewed and no additional complaints, except as documented Neuro Reports no additional complaints Psych Reports no additional complaints Endo Reports no additional complaints Deon/Lymph Reports no additional complaints Aller/Immun Reports no additional complaints Office Procedures Post Void Residual Post Residual Void Post Void Residual (PVR): 102 [id number] Void Residual by ultrasound Results AMB Urinalysis, Automated UA Leukoctes 0 Trish/uL Last Edit by RITESH Oquendo on 11/12/24 13:18 UA Nitrite Negative Last Edit by RITESH Oquendo on 11/12/24 13:18 UA Urobilinogen 3.5 mg/dL Last Edit [facility] on 11/12/24 13:18 UA Protein 0 mg/dL Last Edit by Delia Mcdaniels [facility] on 11/12/24 13:18 UA pH 6.0 Last Edit by Delia Mcdaniels [facility] on 11/12/24 13:18 UA Blood 0 Kumar/uL Last Edit by Delia Mcdaniels [facility] on 11/12/24 13:18 UA Specific [place] 1.010 Last Edit by Delia Mcdaniels [facility] on 11/12/24 13:18 UA Ketone Positive Last Edit by Delia Mcdaniels [facility] on 11/12/24 13:18 UA Bilirubin 0 mg/dL Last Edit by Delia Mcdaniels [facility] on 11/12/24 13:18 UA Glucose 60 mg/dL Last Edit by Delia Mcdaniels [facility] on 11/12/24 13:18 Results Reviewed Results Reviewed: Laboratory Last Values Urine pH (Auto) 6.0 11/12/24 13:17 Specific [place] (Auto) 1.010 11/12/24 13:17 Urine Protein (Auto) 0 mg/dL 11/12/24 13:17 Glucose (UA)(Auto) 60 mg/dL 11/12/24 13:17 Urine Ketones (Auto) Positive 11/12/24 13:17 Urine Blood (Auto) 0 Kumar/uL 11/12/24 13:17 Urine Nitrite (Auto) Negative 11/12/24 13:17 Urine Bilirubin (Auto) 0 mg/dL 11/12/24 13:17 Urine Urobilinogen (Auto) 3.5 mg/dL 11/12/24 13:17 Leukocyte Esterase (Auto) 0 Trish/uL 11/12/24 13:17 Assessment & Plan Assessment & Plan (1) Screening PSA (prostate specific antigen): Code(s): Z12.5 - Encounter for screening for malignant neoplasm of prostate Category: Medical (2) Nocturia: Code(s): R35.1 - Nocturia Category: Medical (3) Personal history of traumatic brain injury: Code(s): Z87.820 - Personal history of traumatic brain injury Category: Medical Plan Discussion Notes I discussed with the patient the current findings regarding his Benign Prostatic Hyperplasia (BPH) and the management plan. The continuation of tamsulosin was confirmed, which has shown to be effective, with clear urinary results supporting this. Residual urine volume remains within acceptable levels. Strategies to manage nocturia were discussed, focusing on moderating evening fluid intake if desired, while monitoring hydration needs. We will continue periodic blood work and PSA assessments as part of routine monitoring. Orders: Orders PSA,Total (Free>4and<10) 11 Months Z12.5 - Encounter for screening for malignant neoplasm of prostate AMB Urinalysis Automated Today Z13.9 - Encounter for screening, unspecified Patient Instructions: Patient Instructions - Continue taking tamsulosin as prescribed. - Try to limit fluid intake in the evening to potentially reduce night-time urination. - Follow-up with blood work and PSA tests as regularly scheduled. - Report any significant changes in urinary symptoms. - Stay hydrated based on personal comfort, even when moderating evening fluid intake. This note is constructed in part using voice recognition software. While every effort has been made to ensure accuracy tiler errors may have been included. Scribe Plan - Not visible on output: Patient was informed and verbally consented to the use of an ambient scribe for clinic note documentation during this visit. Coding Level of Care Code Est Pt Level 4 (17105) Diagnoses Screening PSA (prostate specific antigen) Z12.5 Nocturia R35.1 Personal history of traumatic brain injury Z87.820 CPT Codes Post Residual Void - PVR CPT Code: 66981-[id number] Void Residual by ultrasound ([id number])
--- OUTSIDE RECORDS SUMMARY | 2024-11-12 15:20 | XMS_ITS | Encounter Summary ---
Author Organization [employer] Address [address] [place] [address] Care Team Providers Care Tension Worker Name Role Phone Ismael Mayer MD Primary Care Provider [phone] Encounter Details Date Type Department Care Team (Late st Contact Info) Description 10/29/2024 Lab Requisition [facility] - Main Lab [address] [place] [address] Ismael Mayer MD [address] [place] [address] [address] [place] Benign prostatic hyperplasia without lower urinary tract symptoms; Other hyperlipidemia Social History Tobacco Use Types Packs/Day Years Used Date Smoking Tobacco: Never Assessed Sex and Gender Information Value Date Recorded Sex Assigned at Not on file Legal Sex Male 7:46 PM EST Gender Identity Not on file Sexual Orientation Not on file documented as of this encounter Plan of Treatment Not on file documented as of this encounter Procedures Procedure Name Priority Date/Time Associated Diagnosis Comments LIPID PANEL WITH REFLEX TO DIRECT LDL Routine 10/29/2024 6:15 AM EST Benign prostatic hyperplasia without lower urinary tract symptoms Other hyperlipidemia PROSTATE SPECIFIC ANTIGEN DIAGNOSTIC Routine 10/29/2024 6:15 AM EST Benign prostatic hyperplasia without lower urinary tract symptoms Other hyperlipidemia LDL CHOLESTEROL, DIRECT Routine 10/29/2024 6:15 AM EST Benign prostatic hyperplasia without lower urinary tract symptoms Other hyperlipidemia HEPATIC FUNCTION PANEL Routine 10/29/2024 6:15 AM EST Benign prostatic hyperplasia without lower urinary tract symptoms Other hyperlipidemia documented in this encounter Results * Hepatic function panel (10/29/2024 6:15 AM EST) Total Protein 7.5 6.0 - 8.0 g/dL LAB CHEMISTRY METHOD 10/29/2024 7:48 PM [facility] Albumin 3.8 3.2 - 5.0 g/dL LAB CHEMISTRY METHOD 10/29/2024 7:48 PM [facility] Total Bilirubin 0.3 0.0 - 1.4 mg/dL LAB CHEMISTRY METHOD 10/29/2024 7:48 PM [facility] Bilirubin, Direct <0.1 0.0 - 0.3 mg/dL LAB CHEMISTRY METHOD 10/29/2024 7:48 PM [facility] Bilirubin, Indirect LAB CHEMISTRY METHOD 10/29/2024 7:48 PM [facility] Comment:Unable to calculate Indirect Bilirubin. ALT (SGPT) 30 10 - 60 unit/L LAB CHEMISTRY METHOD 10/29/2024 7:48 PM [facility] AST (SGOT) 14 10 - 42 unit/L LAB CHEMISTRY METHOD 10/29/2024 7:48 PM [facility] Alkaline Phosphatase 55 42 - 121 unit/L LAB CHEMISTRY METHOD 10/29/2024 7:48 PM [facility] Blood Venous blood specimen / Unknown 10/29/2024 6:15 AM EST 10/29/2024 7:02 PM EST us Ismael Mayer MD LAB BLOOD ORDERABLES Final Resul t [facility] [address] [place] [address], * LDL cholesterol, direct (10/29/2024 6:15 AM EST) LDL Direct 52 <=100 mg/dL LAB CHEMISTRY METHOD 10/29/2024 7:40 AM EST [facility] Blood Venous blood specimen / Unknown 10/29/2024 6:15 AM EST 10/29/2024 6:59 AM EST us Ismael Mayer MD LAB BLOOD ORDERABLES Final Resul t Performing Organization Address [facility] Co de Phone Number [facility] [address] [place] [address], * Prostate specific antigen diagnostic (10/29/2024 6:15 AM EST) PSA 0.37 0.00 - 4.00 ng/mL LAB CHEMISTRY METHOD 10/29/2024 8:35 AM EST [facility] Blood Venous blood specimen / Unknown 10/29/2024 6:15 AM EST 10/29/2024 6:59 AM EST [facility] - 10/29/2024 8:35 AM EST The [employer] Chemiluminescent Immunoassay is used. Results obtained with different assay methods or kits cannot be used interchangeably. Results cannot be interpreted as absolute evidence of the presence or absence of malignant disease. us Ismael Mayer MD LAB BLOOD ORDERABLES Final Resul t Performing Organization Address [facility] Co de Phone Number [facility] [address] [place] [address], * (ABNORMAL) Lipid panel with reflex to direct LDL (10/29/2024 6:15 AM EST) Cholesterol 141 0 - 200 mg/dL LAB CHEMISTRY METHOD 10/29/2024 7:31 AM EST [facility] Triglycerides 702(H) 0 - 150 mg/dL LAB CHEMISTRY METHOD 10/29/2024 7:31 AM [facility] HDL 25(L) >=40 mg/dL LAB CHEMISTRY METHOD 10/29/2024 7:31 AM EST [facility] LDL Calculated LAB CHEMISTRY METHOD 10/29/2024 7:31 AM [facility] Comment: Unable to calculate when triglycerides >400 mg/dL. Triglyceride value is >= 500. ??Calculated LDL is not meaningful. ??Direct LDL has been added. VLDL Cholesterol Tim LAB CHEMISTRY METHOD 10/29/2024 7:31 AM EST [facility] Comment:Unable to calculate when triglycerides >400 mg/dL. Non HDL Chol. (LDL+VLDL) LAB CHEMISTRY METHOD 10/29/2024 7:31 AM [facility] Comment:Unable to calculate when triglycerides >400 mg/dL. Chol/HDL Ratio 5.6(H) 0.0 - 4.4 LAB CHEMISTRY METHOD 10/29/2024 7:31 AM [facility] Blood Venous blood specimen / Unknown 10/29/2024 6:15 AM EST 10/29/2024 6:59 AM EST us Ismael Mayer MD LAB BLOOD ORDERABLES Final Resul t [facility] [address] [place] [address], documented in this encounter Visit Diagnoses Diagnosis Benign prostatic hyperplasia without lower urinary tract symptoms Other hyperlipidemia documented in this encounter Care Teams Tension Worker Relationship Specialty Start Date End Date Ismael Mayer MD [address] [place] PCP - General Internal Medicine 10/29/24 documented as of this encounter
--- OUTSIDE RECORDS SUMMARY | 2024-11-12 15:20 | XMS_ITS | Encounter Summary ---
Author Organization [employer] Address [address] [place] [address] Care Team Providers Care Emulsification Operator Name Role Phone Ismael Mayer MD Primary Care Provider [phone] Encounter Details Date Type Department Care Team (Late st Contact Info) Description 11/10/[address] [facility] - Main Lab [address] [place] [address] Ismael Mayer MD [address] [place] [address] [address] [place] Diffuse traumatic brain injury with loss of consciousness of unspecified duration, sequela (CMS/HCC); Type 2 diabetes mellitus without complications (CMS/HCC) Social History Tobacco Use Types Packs/Day Years [...] Procedure Name Priority Date/Time Associated Diagnosis Comments HEMOGLOBIN A1C Routine 11/10/2024 7:35 AM EST Diffuse traumatic brain injury with loss of consciousness of unspecified duration, sequela (CMS/HCC) Type 2 diabetes mellitus without complications (CMS/HCC) AMMONIA Routine 11/10/2024 7:35 AM EST Diffuse traumatic brain injury with loss of consciousness of unspecified duration, sequela (CMS/HCC) Type 2 diabetes mellitus without complications (CMS/HCC) documented in this encounter Results * (ABNORMAL) Hemoglobin A1c (11/10/2024 7:35 AM EST) Hemoglobin A1C 8.0(H) <6.5 % LAB CHEMISTRY METHOD 11/10/2024 8:46 PM EST [facility] ([facility]) [facility] Mean Bld Glu Estim. 183 mg/dL LAB CHEMISTRY METHOD 11/10/2024 8:46 PM EST [facility] Blood Venous blood specimen / Unknown 11/10/2024 7:35 AM EST 11/10/2024 8:11 AM EST us Ismael Mayer MD LAB BLOOD ORDERABLES Final Resul t Performing Organization Address [facility]/ZIP Co de Phone Number [facility] [address] [place] [address], [place] [phone] * (ABNORMAL) Ammonia (11/10/2024 7:35 AM EST) Ammonia 51(H) 11 - 35 mcmol/L LAB CHEMISTRY METHOD 11/10/2024 8:40 AM EST [facility] Blood Venous blood specimen / Unknown 11/10/2024 7:35 AM EST 11/10/2024 8:11 AM EST us Ismael Mayer MD LAB BLOOD ORDERABLES Final Resul t Performing Organization Address [facility] Co de Phone Number [facility] [address] [place] [address], [place] [phone] documented in this encounter Visit Diagnoses Diagnosis Diffuse traumatic brain injury with loss of consciousness of unspecified duration, sequela (CMS/HCC) Type 2 diabetes mellitus without complications (CMS/HCC) documented in this encounter Care Teams Emulsification Operator Relationship Specialty Start Date End Date Ismael Mayer MD [address] [place] [address] Dr [address] [place] PCP - General Internal Medicine 10/29/24 documented as of this encounter
--- OUTSIDE RECORDS SUMMARY | 2024-11-12 15:20 | XMS_ITS | Clinical Summary ---
Author Organization [address] [facility] Address [address] [place] [address] Phone Care Team Providers Care Supervisor Furnace Room Name Role Phone Ismael Mayer MD Primary Care Provider [phone] Encounters Date Type Department Care Team Description 11/10/2024 Lab Requisition [facility] [address] [place] [phone] Ismael Mayer MD Diffuse traumatic brain injury with loss of consciousness of unspecified duration, sequela (CMS/HCC); Type 2 diabetes mellitus without complications (CMS/HCC) 10/29/2024 Lab Requisition [facility] Lab [address] [place] [phone] Ismael Mayer MD Benign prostatic hyperplasia without lower urinary tract symptoms; Other hyperlipidemia 09/09/2024 Lab Requisition [facility] Lab [address] [place] [phone] Ismael Mayer MD Type 2 diabetes mellitus without complications (CMS/HCC); Other mcfp (current) drug therapy; Diffuse traumatic brain injury with loss of consciousness of unspecified duration, sequela (CMS/HCC) from Last 3 Months Social History Tobacco Use Types Packs/Day Years Used Date Smoking Tobacco: Never Assessed Sex and Gender Information Value Date Recorded Sex Assigned at Not on file Legal Sex Male 7:46 PM EST Gender Identity Not on file Sexual Orientation Not on file Plan of Treatment Health Maintenance Due Date Last Done Comments Diabetes: Annual GFR (Glomerular Filtration Rate) 1971 Diabetes: Annual Foot Exam 1981 Diabetes: Annual Retina Eye Exam 1981 DTaP,Tdap,and Td Vaccines (1 - Tdap) 1990 Hepatitis B Vaccines (1 of 3 - 19+ 3-dose series) 1990 Pneumococcal Vaccine: 50+ Years (1 of 2 - PCV) 1990 Pneumococcal Vaccine: Pediatrics (0 to 5 Years) and At-Risk Patients (6 to 64 Years) (1 of 2 - PCV) 1990 Zoster Vaccines (1 of 2) 2021 Colorectal Cancer Screening: Colonoscopy 08/11/2022 Depression Screening 08/11/2022 HIV Screening 08/11/2022 Hepatitis C Screening 08/11/2022 Medicare Annual Wellness Visit 08/11/2022 Social Influencers of Health Screening 08/11/2022 COVID-19 Vaccine (1 - 2023-2 5 season) 2024 Influenza Vaccine (#1) 2024 Diabetes: Annual Urine Albumin-Creatinine Ratio (uACR) 09/21/2024 Diabetes: Blood Sugar Contro l Test (HGBA1C) 05/13/2025 11/10/2024, 09/09/2024 Cholesterol Screening (Lipid Panel) 10/29/2029 10/29/2024, 10/29/2024 HIB Vaccines Aged Out No longer eligi ble based on patient's age to complete this topic HPV Vaccines Aged Out No longer eligi ble based on patient's age to complete this topic Hepatitis A Vaccines Aged Out No long er eligible based on patient's age to complete this topic IPV Vaccines Aged Out No longer eligi ble based on patient's age to complete this topic MMR Vaccines Aged Out No longer eligi ble based on patient's age to complete this topic Meningococcal ACWY Vaccine Aged Out N o longer eligible based on patient's age to complete this topic Meningococcal B Vacine Aged Out No lo nger eligible based on patient's age to complete this topic RSV Immunization Patients Under 20 months Aged Out No longer eligible b ased on patient's age to complete this topic Varicella Vaccines Aged Out No longer eligible based on patient's age to complete this topic Procedures Procedure Name Priority Date/Time Associated Diagnosis Comments HEMOGLOBIN A1C Routine 11/10/2024 7:35 AM EST Diffuse traumatic brain injury with loss of consciousness of unspecified duration, sequela (CMS/HCC) Type 2 diabetes mellitus without complications (CMS/HCC) AMMONIA Routine 11/10/2024 7:35 AM EST Diffuse traumatic brain injury with loss of consciousness of unspecified duration, sequela (CMS/HCC) Type 2 diabetes mellitus without complications (CMS/HCC) HEPATIC FUNCTION PANEL Routine 10/29/2024 6:15 AM EST Benign prostatic hyperplasia without lower urinary tract symptoms Other hyperlipidemia LDL CHOLESTEROL, DIRECT Routine 10/29/2024 6:15 AM EST Benign prostatic hyperplasia without lower urinary tract symptoms Other hyperlipidemia PROSTATE SPECIFIC ANTIGEN DIAGNOSTIC Routine 10/29/2024 6:15 AM EST Benign prostatic hyperplasia without lower urinary tract symptoms Other hyperlipidemia LIPID PANEL WITH REFLEX TO DIRECT LDL Routine 10/29/2024 6:15 AM EST Benign prostatic hyperplasia without lower urinary tract symptoms Other hyperlipidemia AMMONIA Routine 09/09/2024 8:50 AM EST Type 2 diabetes mellitus without complications (CMS/HCC) Other truck terminal manager (current) drug therapy Diffuse traumatic brain injury with loss of consciousness of unspecified duration, sequela (CMS/HCC) HEMOGLOBIN A1C Routine 09/09/2024 8:50 AM EST Type 2 diabetes mellitus without complications (CMS/HCC) Other truck terminal manager (current) drug therapy Diffuse traumatic brain injury with loss of consciousness of unspecified duration, sequela (CMS/HCC) from Last 3 Months Results * (ABNORMAL) Hemoglobin A1c (11/10/2024 7:35 AM EST) Only the most recent of2 resultswithin the time period is included. Hemoglobin A1C 8.0(H) <6.5 % LAB CHEMISTRY METHOD 11/10/2024 8:46 PM EST [facility] Mean Bld Glu Estim. 183 mg/dL LAB CHEMISTRY METHOD 11/10/2024 8:46 PM EST [facility] Blood Venous blood specimen / Unknown 11/10/2024 7:35 AM EST 11/10/2024 8:11 AM EST us Ismael Mayer MD LAB BLOOD ORDERABLES Final Resul t [facility] [address] [place] [address], [place] [phone] * (ABNORMAL) Ammonia (11/10/2024 7:35 AM EST) Only the most recent of2 resultswithin the time period is included. Ammonia 51(H) 11 - 35 mcmol/L LAB CHEMISTRY METHOD 11/10/2024 8:40 AM EST [facility] Blood Venous blood specimen / Unknown 11/10/2024 7:35 AM EST 11/10/2024 8:11 AM EST Ismael Mayer MD LAB BLOOD ORDERABLES Final Resul t Performing Organization Address [facility]/State/ZIP Co de Phone Number [facility] [address] [place] [address], [place] [phone] * (ABNORMAL) Lipid panel with reflex to direct LDL (10/29/2024 6:15 AM EST) Cholesterol 141 0 - 200 mg/dL LAB CHEMISTRY METHOD 10/29/2024 7:31 AM [facility] Triglycerides 702(H) 0 - 150 mg/dL LAB CHEMISTRY METHOD 10/29/2024 7:31 AM [facility] HDL 25(L) >=40 mg/dL LAB CHEMISTRY METHOD 10/29/2024 7:31 AM [facility] LDL Calculated LAB CHEMISTRY METHOD 10/29/2024 7:31 AM [facility] Comment: Unable to calculate when triglycerides >400 mg/dL. Triglyceride value is >= 500. ??Calculated LDL is not meaningful. ??Direct LDL has been added. VLDL Cholesterol Tim LAB CHEMISTRY METHOD 10/29/2024 7:31 AM [facility] Comment:Unable to calculate when triglycerides >400 mg/dL. Non HDL Chol. (LDL+VLDL) LAB CHEMISTRY METHOD 10/29/2024 7:31 AM [facility] Comment:Unable to calculate when triglycerides >400 mg/dL. Chol/HDL Ratio 5.6(H) 0.0 - 4.4 LAB CHEMISTRY METHOD 10/29/2024 7:31 AM EST [facility] Blood Venous blood specimen / Unknown 10/29/2024 6:15 AM EST 10/29/2024 6:59 AM EST us Ismael Mayer MD LAB BLOOD ORDERABLES Final Resul t Performing Organization Address [facility] de Phone Number [facility] [address] [place] [address], [place] [phone] * Prostate specific antigen diagnostic (10/29/2024 6:15 AM EST) PSA 0.37 0.00 - 4.00 ng/mL LAB CHEMISTRY METHOD 10/29/2024 8:35 AM EST [facility] Blood Venous blood specimen / Unknown 10/29/2024 6:15 AM EST 10/29/2024 6:59 AM EST Narrative [facility] - 10/29/2024 8:35 AM EST The Siemens Advia Centaur Chemiluminescent Immunoassay is used. Results obtained with different assay methods or kits cannot be used interchangeably. Results cannot be interpreted as absolute evidence of the presence or absence of malignant disease. us Ismael Mayer MD LAB BLOOD ORDERABLES Final Resul t Performing Organization Address [facility] Co de Phone Number [facility] [address] [place] [address], [place] [phone] * LDL cholesterol, direct (10/29/2024 6:15 AM EST) LDL Direct 52 <=100 mg/dL LAB CHEMISTRY METHOD 10/29/2024 7:40 AM EST [facility] Blood Venous blood specimen / Unknown 10/29/2024 6:15 AM EST 10/29/2024 6:59 AM EST us Ismael Mayer MD LAB BLOOD ORDERABLES Final Resul t Performing Organization Address City/[facility]/ZIP Co de Phone Number [facility] [address] [place] [address], [place] [phone] * Hepatic function panel (10/29/2024 6:15 AM EST) Total Protein 7.5 6.0 - 8.0 g/dL LAB CHEMISTRY METHOD 10/29/2024 7:48 PM EST [facility] Albumin 3.8 3.2 - 5.0 g/dL LAB CHEMISTRY METHOD 10/29/2024 7:48 PM [facility] Total Bilirubin 0.3 0.0 - 1.4 mg/dL LAB CHEMISTRY METHOD 10/29/2024 7:48 PM [facility] Bilirubin, Direct <0.1 0.0 - 0.3 mg/dL LAB CHEMISTRY METHOD 10/29/2024 7:48 PM [facility] Bilirubin, Indirect LAB CHEMISTRY METHOD 10/29/2024 7:48 PM [facility] Comment:Unable to calculate Indirect Bilirubin. ALT (SGPT) 30 10 - 60 unit/L LAB CHEMISTRY METHOD 10/29/2024 7:48 PM [facility] AST (SGOT) 14 10 - 42 unit/L LAB CHEMISTRY METHOD 10/29/2024 7:48 PM [facility] Alkaline Phosphatase 55 42 - 121 unit/L LAB CHEMISTRY METHOD 10/29/2024 7:48 PM [facility] Blood Venous blood specimen / Unknown 10/29/2024 6:15 AM EST 10/29/2024 7:02 PM EST us Ismael Mayer MD LAB BLOOD ORDERABLES Final Resul t [facility] [address] [place] [address], [place] [phone] from Last 3 Months Insurance MEDICARE MEDICAID - [place] Care Teams Supervisor Furnace Room Relationship Specialty Start Date End Date Ismael Mayer MD [address] [place] [address] Dr [address] [place] PCP - General Internal Medicine 10/29/24
--- OUTSIDE RECORDS SUMMARY | 2024-11-12 15:20 | XMS_ITS | Encounter Summary ---
Author Organization [employer] Address [address] [place] [address] Care Team Providers Care Reduction Furnace Operator Name Role Phone Ismael Mayer MD Primary Care Provider [phone] Encounter Details Date Type Department Care Team (Late st Contact Info) Description 09/09/2024 Lab Requisition [facility] [address] [facility] [employer] [place] [address] Ismael Mayer MD [address] [place] [address] [address] [place], [place] Type 2 diabetes mellitus without complications (CMS/HCC); Other senior living (current) drug therapy; Diffuse traumatic brain injury with loss of consciousness of unspecified duration, sequela (CMS/HCC) Social History Tobacco Use Types Packs/Day [...] Date/Time Associated Diagnosis Comments HEMOGLOBIN A1C Routine 09/09/2024 8:50 AM EST Type 2 diabetes mellitus without complications (CMS/HCC) Other senior living (current) drug therapy Diffuse traumatic brain injury with loss of consciousness of unspecified duration, sequela (CMS/HCC) AMMONIA Routine 09/09/2024 8:50 AM EST Type 2 diabetes mellitus without complications (CMS/HCC) Other exterminator termite (current) drug therapy Diffuse traumatic brain injury with loss of consciousness of unspecified duration, sequela (CMS/HCC) documented in this encounter Results * (ABNORMAL) Ammonia (09/09/2024 8:50 AM EST) Ammonia 39(H) 11 - 35 mcmol/L LAB CHEMISTRY METHOD 09/09/2024 10:47 AM EST [facility] Blood Venous blood specimen / Unknown 09/09/2024 8:50 AM EST 09/09/2024 9:47 AM EST us Ismael Mayer MD LAB BLOOD ORDERABLES Final Resul t Performing Organization Address [facility] Co de Phone Number [facility] [address] [place] [address], [place] [phone] * (ABNORMAL) Hemoglobin A1c (09/09/2024 8:50 AM EST) Hemoglobin A1C 7.7(H) <6.5 % LAB CHEMISTRY METHOD 09/10/2024 8:45 AM EST [facility] Mean Bld Glu Estim. 174 mg/dL LAB CHEMISTRY METHOD 09/10/2024 8:45 AM EST [facility] Blood Venous blood specimen / Unknown 09/09/2024 8:50 AM EST 09/09/2024 9:47 AM EST us Ismael Mayer MD LAB BLOOD ORDERABLES Final Resul t Performing Organization Address [facility] Co de Phone Number [facility] [address] [place] [address], [place] [phone] documented in this encounter Visit Diagnoses Diagnosis Type 2 diabetes mellitus without complications (CMS/HCC) Other exterminator termite (current) drug therapy Diffuse traumatic brain injury with loss of consciousness of unspecified duration, sequela (CMS/HCC) documented in this encounter Care Teams Reduction Furnace Operator Relationship Specialty Start Date End Date Ismael Mayer MD [address] [facility] [place] PCP - General Internal Medicine 10/29/24 documented as of this encounter
== END 2024-11-12 13:36 | disposition home or self-care (01) ==
LOC: HO.HUSH 12:43
PROVIDERS: PCP Hospitalist; Visit Provider Urology
DX: Z12.5 Encounter for screening for malignant neoplasm of prostate (principal); R35.1 Nocturia; Z87.820 Personal history of traumatic brain injury; Z13.9 Encounter for screening, unspecified
CPT/HCPCS: 99214

== ENCOUNTER → 2024-11-12 12:43 | Outpatient (BNVA) | payer MEDICARE, MEDICAID, SELFPAY | PROVIDERS: PCP Hospitalist; Visit Provider Urology | DX: Z12.5 Encounter for screening for malignant neoplasm of prostate (principal); R35.1 Nocturia; Z87.820 Personal history of traumatic brain injury | CPT/HCPCS: 51798; 81003; 99212 ==

== ENCOUNTER → 2025-03-18 10:21 | Outpatient (BNV) | payer MEDICARE, MEDICAID, SELFPAY | PROVIDERS: Emergency Provider Emergency Medicine; Visit Provider Radiology Diagnostic Radiology | DX: M25.552 Pain in left hip (principal); R22.42 Localized swelling, mass and lump, left lower limb; W19.XXXA Unspecified fall, initial encounter | CPT/HCPCS: 73502; 73564; 73610 ==

== ENCOUNTER 2025-03-18 10:27 | Emergency (ER) | payer MEDICARE, MEDICAID, SELFPAY ==
--- NOTE | ~2025-03-18 | XR_ITS ---
EXAMINATION: XR HIP 1 VIEW LEFT WITH PELVIS HISTORY: pain, fall COMPARISON: There are no prior studies available for comparison. FINDINGS: Two AP views of the pelvis and two views of the left hip are submitted. Osseous mineralization is normal. There is no fracture or dislocation. The joint space is maintained. The soft tissues are unremarkable. XR/XR hip LT w PEL1V IMPRESSION: Unremarkable examination of the left hip. Electronically signed by: Dann Norris MD 03/18/2025 11:40 AM EDT
--- NOTE | ~2025-03-18 | XR_ITS ---
EXAMINATION: XR KNEE 4 OR MORE VIEWS LEFT HISTORY: fall knee swelling l COMPARISON: There are no prior studies available for comparison. FINDINGS: Four views of the left knee are submitted. Osseous mineralization is normal. There is no fracture or dislocation. 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 Milder changes are noted involving the lateral patellofemoral compartments. There is no joint effusion. There is a 10 mm loose body in the posterior aspect of the joint space. XR/XR knee LT 4V IMPRESSION: Degenerative changes of the left knee as described. 10 mm loose body. No evidence of fracture. Electronically signed by: Dann Norris MD 03/18/2025 11:41 AM EDT
--- NOTE | ~2025-03-18 | XR_ITS ---
EXAMINATION: XR ANKLE 3 OR MORE VIEWS LEFT HISTORY: fall ankle swelling COMPARISON: There are no prior studies available for comparison. FINDINGS: Three views of the left ankle are submitted. Osseous mineralization is normal. Multiple well-corticated osseous densities are seen adjacent to the tip of the medial malleolus, consistent with old trauma. No acute fracture or dislocation is seen. The joint spaces are preserved. The soft tissues are unremarkable. XR/XR ankle LT min 3V IMPRESSION: No evidence of acute fracture of the left ankle. Electronically signed by: Dann Norris MD 03/18/2025 11:42 AM EDT
[2025-03-18 10:36] VITALS: BP 132/79; PULSE 90; O2SAT 8
[2025-03-18 10:41] VITALS: BP 121/74; PULSE 82; RESP 16; TEMP 36.8; O2SAT 99; BMI 34.8
--- NOTE | 2025-03-18 10:57 | ED.FALL ---
HPI - Fall General Chief Complaint: Fall Stated Complaint: SLIP/FALL THIS AM,RLE PAIN SWELLING PER EMS Time Seen by Provider: 03/18/25 10:55 Source: patient, EMS and old records reviewed Mode of arrival: EMS Limitations: no limitations History of Present Illness ED Provider: SHILPA HPI Narrative: 54 yo male from [facility] hx of DM, ETOH use disorder, TBI, he does have guardian he comes in with c/o slip and fall on wet floor - no LOC, no headstrike not on thinners. He was not on the floor for long. He reports injuring his L knee, L hip and L ankle. He was given tylenol CERTIFIED PHLEBOTOMIST. He reports no confusion. No preceding symptoms. He states the floors were wet. MD complaint: fall Onset (ago): hour(s) (CERTIFIED PHLEBOTOMIST) Fall from: standing Fall witnessed: yes, by living facility staff Place fall occurred: senior living[facility]NF Loss of consciousness: none Prolonged down time: no Symptoms prior to fall: none Context: tripped/slipped Location of injury: pelvis Location of injury - extremities: left: knee and ankle Severity: mild Quality: aching Associated symptoms (after fall): denies Related Data Home Medications ?Medication ?Instructions ?Recorded ?Confirmed acetaminophen 325 mg capsule 325 mg PO QID PRN Pain 05/28/23 11/12/23 atorvastatin 10 mg tablet (Lipitor) 10 mg PO DAILY 05/28/23 11/12/23 calcium carbonate 500 mg PO DAILY 05/28/23 11/12/23 divalproex 250 mg tablet,delayed 250 mg PO BEDTIME 05/28/23 11/12/23 release divalproex 500 mg tablet,delayed 500 mg PO BID 05/28/23 11/12/23 release dulaglutide 0.75 mg/0.5 mL 0.75 mg subcut QWEEK 05/28/23 11/12/23 subcutaneous pen injector (Trulicity) gemfibrozil 600 mg tablet 600 mg PO BID 05/28/23 11/12/23 insulin lispro 100 unit/mL 1 sliding scale dose subcut 05/28/23 11/12/23 subcutaneous solution (Humalog USEASDIRECTD U-100 Insulin) levothyroxine 25 mcg tablet 25 mcg PO DAILY 05/28/23 11/12/23 (Synthroid) metformin 1,000 mg tablet 1,000 mg PO DAILY 05/28/23 11/12/23 omeprazole 20 mg capsule,delayed 20 mg PO DAILY 05/28/23 11/12/23 release sennosides 8.6 mg tablet (senna) 8.6 mg PO DAILY 05/28/23 11/12/23 sodium phosphates 19 gram-7 118 ml AL BEDTIME PRN Constipation 05/28/23 11/12/23 gram/118 mL enema (Fleet Enema) tamsulosin 0.4 mg capsule 0.4 mg PO DAILY 05/28/23 11/12/23 trazodone 100 mg tablet 100 mg PO BEDTIME PRN Insomnia 05/28/23 11/12/23 insulin glargine 100 unit/mL 30 unit subcut BID 10/11/23 11/12/23 subcutaneous solution (Lantus U-100 Insulin) propranolol 60 mg capsule,24 mg PO 10/11/23 11/12/23 hr,extended release Allergies Allergy/AdvReac Type Severity Reaction Status Date / Time No Known Drug Allergies Allergy Severe Unknown Verified 11/12/24 13:04 almond Allergy Mild Hives Verified 03/18/25 10:42 peach Allergy Mild Hives Verified 03/18/25 10:42 Review of Systems Review of Systems: Constitutional : No Fever, No Chills ENT/Mouth : No Ear Pain, No Hoarseness, No sore throat Eyes: No Eye Pain, No Swelling, No Redness, No Foreign Body Cardiovascular : No Chest Pain, No SOB Respiratory : No Cough, No Dyspnea Gastrointestinal : No Nausea, No Vomiting, No Diarrhea, No abdominal Pain Genitourinary : No Dysuria, No Hematuria Musculoskeletal : positive joint pain, No Myalgias, No Joint Swelling Skin : No Skin lacerations, No rash Neuro : No Weakness, No Numbness, No Loss of Consciousness, No Dizziness, No Headache All other systems reviewed and are negative PMFSH Past Medical History Attestation statement: The following information was validated with the patient. Source: old records reviewed Medical History Internal hemorrhoids without complication Diverticulosis Tubular adenoma of colon Resides in [facility] facility Low back pain Slow transit constipation Benign localized hyperplasia of prostate Snoring Hypermetropia, bilateral Presbyopia Other hyperlipidemia Age-related nuclear cataract, bilateral Type 2 diabetes mellitus Hypothyroidism Obstructive sleep apnea Spinal stenosis Cocaine abuse Alcohol abuse Restlessness and agitation Personal history of other diseases of the respiratory system Personal history of healed traumatic fracture Personal history of traumatic brain injury 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 Surgical History H/O colonoscopy History of craniotomy History of partial colectomy Social History Social History Housing Other:: [facility] Patient Tobacco Use Status: Tobacco use Unknown Advance Directives: Yes Advance Directives on File: Yes Advance Directives Date on File: 08/28/23 Physical Exam Vital Signs: Vital Signs: Last Vital Signs Temp 98.2 F 03/18/25 10:41 Pulse 82 03/18/25 10:41 Resp 16 03/18/25 10:41 BP 121/74 03/18/25 10:41 Pulse Ox 99 03/18/25 10:41 O2 Del Method Room Air 03/18/25 10:41 BMI result Body Mass Index 34.8 Appearance: Alert. Oriented X3. No acute distress. Eyes: Pupils equal, round and reactive to light. ENT: Pharynx normal. atraumatic Neck: Normal inspection. Neck supple Back: no midline ttp . CVS: Normal heart rate and rhythm. Pulses normal. Respiratory: No respiratory distress. Breath sounds normal. Abdomen: Soft and nontender. Skin: Skin warm and dry. Normal skin color. Normal skin turgor. Extremities: No lower extremity edema. distal NV intact but c/o pain to L knee, L ankle, some mild L hip pain, no pain or symtoms with ROM testing of UE or RLE - L ankle lat malleolus testing, knee ttp along patella, no mid tib/fib ttp and no prox femur pain Neuro: Oriented X 3. No motor deficit. No sensory deficit. CN2-12 intact Procedures Orthopedic Splinting/Casting Injury #1: Side: left Lower Extremity Injury Location: knee and ankle Lower Extremity Immobilizer: AirCast and Dudley wrap Other Orthopedic Equipment: crutches Additional Comments: NV intact Medical Decision Making Medical Decision Making MDM Narrative: 54 yo male from [facility] hx of DM, ETOH use disorder, TBI not on thinners trip and fall on wet floor now here with c/o LLE pain and injury post fall he is NV intact. At this time GCS 15, no signs of trunk or head trauma. Will obtain xrays of LLE. Differential Diagnosis Differential Diagnoses: The differential diagnosis associated with the presentation includes strain, sprain, fracture Admission/Observation Consideration of admission/observation: Escalation of care including admission/observation considered negative work up spoke to Alessandra who is guardian aware of knee xray and concern for further work up or MRI okay with crutches Independent Interpretation I performed an independent interpretation of an: Plain X-Ray (no fracture but loose body on knee) Radiology Impression Discussion of test interpretation with radiology: I have reviewed the radiologist's reading. Independent Historian Clinical information obtained from an independent historian. History obtained from or confirmed by: Spouse and EMS External Record Review External record reviewed: Outpatient record Tests considered The following testing was considered but not selected: CT head and cspine - no neck pain, no headstrike noted and not on thinners he is also alert and oriented Prescription Management I considered prescription management with: Pain Medication and Other Discharge Plan Discharge Clinical Impression: Left knee sprain, Left ankle sprain Patient Disposition: Home, Self-Care Instructions: Ankle Stirrup Splint (ED), Ankle Sprain (ED), Knee Sprain (ED) Additional Instructions: xrays of left hip, knee, ankle no broken bones but there is a loose fragment of the left knee that could be possible avulsion or ligamentous injury please follow up with MRI if symptoms persist crutches for 1 week with weight bearing as tolerated, airsplint for 10 days dudley wrap for 1 week okay to take off at night return for worsening pain, swelling or any other concerns. HISTORY: pain, fall COMPARISON: There are no prior studies available for comparison. FINDINGS: Two AP views of the pelvis and two views of the left hip are submitted. Osseous mineralization is normal. There is no fracture or dislocation. The joint space is maintained. The soft tissues are unremarkable. XR/XR hip LT w PEL1V IMPRESSION: Unremarkable examination of the left hip. HISTORY: fall knee swelling l COMPARISON: There are no prior studies available for comparison. FINDINGS: Four views of the left knee are submitted. Osseous mineralization is normal. There is no fracture or dislocation. 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 Milder changes are noted involving the lateral patellofemoral compartments. There is no joint effusion. There is a 10 mm loose body in the posterior aspect of the joint space. XR/XR knee LT 4V IMPRESSION: Degenerative changes of the left knee as described. 10 mm loose body. No evidence of fracture. EXAMINATION: XR ANKLE 3 OR MORE VIEWS LEFT HISTORY: fall ankle swelling COMPARISON: There are no prior studies available for comparison. FINDINGS: Three views of the left ankle are submitted. Osseous mineralization is normal. Multiple well-corticated osseous densities are seen adjacent to the tip of the medial malleolus, consistent with old trauma. No acute fracture or dislocation is seen. The joint spaces are preserved. The soft tissues are unremarkable. XR/XR ankle LT min 3V IMPRESSION: No evidence of acute fracture of the left ankle. Prescriptions: No Action acetaminophen 325 mg capsule 325 mg PO QID PRN (Reason: Pain) divalproex 250 mg tablet,delayed release (DR/EC) 250 mg PO BEDTIME divalproex 500 mg tablet,delayed release (DR/EC) 500 mg PO BID Fleet Enema 19-7 gram/118 mL enema 118 ml AL BEDTIME PRN (Reason: Constipation) gemfibrozil 600 mg tablet 600 mg PO BID insulin lispro [Humalog U-100 Insulin] 100 unit/mL solution 1 sliding scale dose subcut USEASDIRECTD atorvastatin [Lipitor] 10 mg tablet 10 mg PO DAILY metformin 1,000 mg tablet 1,000 mg PO DAILY omeprazole 20 mg capsule,delayed release(DR/EC) 20 mg PO DAILY sennosides [senna] 8.6 mg tablet 8.6 mg PO DAILY levothyroxine [Synthroid] 25 mcg tablet 25 mcg PO DAILY tamsulosin 0.4 mg capsule 0.4 mg PO DAILY trazodone 100 mg tablet 100 mg PO BEDTIME PRN (Reason: Insomnia) Trulicity 0.75 mg/0.5 mL pen injector 0.75 mg subcut QWEEK calcium carbonate 500 mg calcium (1,250 mg) tablet,chewable 500 mg PO DAILY insulin glargine [Lantus U-100 Insulin] 100 unit/mL solution 30 unit subcut BID Patient Comments: Took half dose 10 units AM. propranolol 60 mg capsule,extended release 24 hr PO Print Language: Kazakh
--- NOTE | 2025-03-18 11:23 | PC.NURSE ---
Away for imaging at this time. Awaiting xray results.
--- OUTSIDE RECORDS SUMMARY | 2025-03-18 11:45 | XMS_ITS | Clinical Summary ---
Author Organization 299 [facility] Address [address] [place] [address] Phone Care Team Providers Care Historian Research Assistant Name Role Phone Ismael Mayer MD Primary Care Provider [phone] Encounters Date Type Department Care Team Description 02/17/2025 Lab Requisition [facility] [address] [place] [phone] Ismael Mayer MD Encounter for therapeutic drug level monitoring; Other intermodal owner operator truck driver (current) drug therapy 01/26/2025 Lab Requisition [facility] [address] [place] [phone] Ismael Mayer MD Other intermodal owner operator truck driver (current) drug therapy 12/22/2024 Lab Requisition [facility] [address] [place] [phone] Ismael Mayer MD Diffuse traumatic brain injury with loss of consciousness of unspecified duration, sequela ([facility]/HCC V24); Alcohol abuse, uncomplicated; Hyperlipidemia, unspecified; Benign prostatic hyperplasia without lower urinary tract symptoms; Type 2 diabetes mellitus without complications (CMS/HCC V24, CMS/HCC V28); Hypothyroidism, unspecified from Last 3 Months Social History Tobacco Use Types Packs/Day Years Used Date Smoking Tobacco: Never Assessed Sex and Gender Information Value Date Recorded Sex Assigned at Not on file Legal Sex Male 7:46 PM EST Gender Identity Not on file Sexual Orientation Not on file Plan of Treatment Health Maintenance Due Date Last Done Comments Diabetes: Annual Foot Exam 1981 Diabetes: Annual Retina Eye Exam 1981 DTaP,Tdap,and Td Vaccines (1 - Tdap) 1990 Hepatitis A Vaccines (1 of 2 - Risk 2-dose series) 1990 Hepatitis B Vaccines (1 of 3 - 19+ 3-dose series) 1990 Pneumococcal Vaccine: 50+ Years (1 of 2 - PCV) 1990 Pneumococcal Vaccine: Pediatrics (0 to 5 Years) and At-Risk Patients (6 to 49 Years) (1 of 2 - PCV) 1990 Zoster Vaccines (1 of 2) 2021 Colorectal Cancer Screening: Colonoscopy 08/11/2022 Depression Screening 08/11/2022 HIV Screening 08/11/2022 Hepatitis C Screening 08/11/2022 Medicare Annual Wellness Visit 08/11/2022 Social Influencers of Health Screening 08/11/2022 COVID-19 Vaccine (1 - 2023-2 5 season) 2024 Diabetes: Annual Urine Albumin-Creatinine Ratio (uACR) 09/21/2024 Influenza Vaccine (#1) 2025 Diabetes: Blood Sugar Contro l Test (HGBA1C) 08/19/2025 02/17/2025, 11/10/2024, 09/09/2024 Diabetes: Annual GFR (Glomerular Filtration Rate) 12/22/2025 12/22/2024 Cholesterol Screening (Lipid Panel) 12/22/2029 12/22/2024, 10/29/2024, 10/29/2024 HIB Vaccines Aged Out No [...] age to complete this topic Meningococcal B Vaccine Aged Out No l onger eligible based on patient's age to complete this topic RSV Immunization Patients Under 20 months Aged Out No longer eligible b ased on patient's age to complete this topic Varicella Vaccines Aged Out No longer eligible based on patient's age to complete this topic Procedures Procedure Name Priority Date/Time Associated Diagnosis Comments AMMONIA Routine 02/17/2025 7:13 AM EDT Encounter for therapeutic drug level monitoring Other intermodal owner operator truck driver (current) drug therapy HEMOGLOBIN A1C Routine 02/17/2025 7:13 AM EDT Encounter for therapeutic drug level monitoring Other [facility] (current) drug therapy HEPATIC FUNCTION PANEL Routine 01/26/2025 6:30 AM EDT Other mcc (current) drug therapy SST - GOLD Routine 12/22/2024 5:13 AM EDT Diffuse traumatic brain injury with loss of consciousness of unspecified duration, sequela (CMS/HCC V24) Alcohol abuse, uncomplicated Hyperlipidemia, unspecified Benign prostatic hyperplasia without lower urinary tract symptoms Type 2 diabetes mellitus without complications (CMS/HCC V24, CMS/HCC V28) Hypothyroidism, unspecified VALPROIC ACID LEVEL, TOTAL Routine 12/22/2024 5:13 AM EDT Diffuse traumatic brain injury with loss of consciousness of unspecified duration, sequela (CMS/HCC V24) Alcohol abuse, uncomplicated Hyperlipidemia, unspecified Benign prostatic hyperplasia without lower urinary tract symptoms Type 2 diabetes mellitus without complications (CMS/HCC V24, CMS/HCC V28) Hypothyroidism, unspecified PROSTATE SPECIFIC ANTIGEN SCREEN Routine 12/22/2024 5:13 AM EDT Diffuse traumatic brain injury with loss of consciousness of unspecified duration, sequela (CMS/HCC V24) Alcohol abuse, uncomplicated Hyperlipidemia, unspecified Benign prostatic hyperplasia without lower urinary tract symptoms Type 2 diabetes mellitus without complications (CMS/HCC V24, CMS/HCC V28) Hypothyroidism, unspecified THYROXINE FREE Routine 12/22/2024 5:13 AM EDT Diffuse traumatic brain injury with loss of consciousness of unspecified duration, sequela (CMS/HCC V24) Alcohol abuse, uncomplicated Hyperlipidemia, unspecified Benign prostatic hyperplasia without lower urinary tract symptoms Type 2 diabetes mellitus without complications (CMS/HCC V24, CMS/HCC V28) Hypothyroidism, unspecified THYROID STIMULATING HORMONE Routine 12/22/2024 5:13 AM EDT Diffuse traumatic brain injury with loss of consciousness of unspecified duration, sequela (CMS/HCC V24) Alcohol abuse, uncomplicated Hyperlipidemia, unspecified Benign prostatic hyperplasia without lower urinary tract symptoms Type 2 diabetes mellitus without complications (CMS/HCC V24, CMS/HCC V28) Hypothyroidism, unspecified LIPID PANEL WITH REFLEX TO DIRECT LDL Routine 12/22/2024 5:13 AM EDT Diffuse traumatic brain injury with loss of consciousness of unspecified duration, sequela ([facility] V24) Alcohol abuse, uncomplicated Hyperlipidemia, unspecified Benign prostatic hyperplasia without lower urinary tract symptoms Type 2 diabetes mellitus without complications ([facility] V24, [facility] V28) Hypothyroidism, unspecified COMPREHENSIVE METABOLIC PANEL Routine 12/22/2024 5:13 AM EDT Diffuse traumatic brain injury with loss of consciousness of unspecified duration, sequela ([facility] V24) Alcohol abuse, uncomplicated Hyperlipidemia, unspecified Benign prostatic hyperplasia without lower urinary tract symptoms Type 2 diabetes mellitus without complications ([facility] V24, [facility] V28) Hypothyroidism, unspecified COMPLETE BLOOD COUNT Routine 12/22/2024 5:13 AM EDT Diffuse traumatic brain injury with loss of consciousness of unspecified duration, sequela ([facility] V24) Alcohol abuse, uncomplicated Hyperlipidemia, unspecified Benign prostatic hyperplasia without lower urinary tract symptoms Type 2 diabetes mellitus without complications ([facility] V24, [facility] V28) Hypothyroidism, unspecified from Last 3 Months Results * (ABNORMAL) Hemoglobin A1c (02/17/2025 7:13 AM EDT) Hemoglobin A1C 8.1(H) <6.5 % LAB CHEMISTRY METHOD 02/17/2025 12:17 PM EDT [facility] Mean Bld Glu Estim. 186 mg/dL LAB CHEMISTRY METHOD 02/17/2025 12:17 PM EDT [facility] Blood Venous blood specimen / Unknown 02/17/2025 7:13 AM EDT 02/17/2025 7:52 AM EDT us Ismael Mayer MD LAB BLOOD ORDERABLES Final Resul t [facility] [address] [place] [address], * (ABNORMAL) Ammonia (02/17/2025 7:13 AM EDT) Ammonia 53(H) 11 - 35 mcmol/L LAB CHEMISTRY METHOD 02/17/2025 8:39 AM EDT [facility] Blood Venous blood specimen / Unknown 02/17/2025 7:13 AM EDT 02/17/2025 7:52 AM EDT us Ismael Mayer MD LAB BLOOD ORDERABLES Final Resul t [facility] [address] [place] [address], [place] [phone] * (ABNORMAL) Hepatic function panel (01/26/2025 6:30 AM EDT) [facility] Total Protein 7.1 6.0 - 8.0 g/dL LAB CHEMISTRY METHOD [facility] Albumin 3.6 3.2 - 5.0 g/dL LAB CHEMISTRY METHOD 01/26/2025 8:51 AM [facility] Total Bilirubin 0.3 0.0 - 1.4 mg/dL LAB CHEMISTRY METHOD 01/26/2025 8:51 AM [facility] Bilirubin, Direct <0.1 0.0 - 0.3 mg/dL LAB CHEMISTRY METHOD 01/26/2025 8[facility] Bilirubin, Indirect LAB CHEMISTRY METHOD 01/26/2025 8:51 AM [facility] Comment:Unable to calculate Indirect Bilirubin. ALT (SGPT) 26 10 - 60 unit/L LAB CHEMISTRY METHOD 01/26/2025 8:51 AM [facility] AST (SGOT) 8(L) 10 - 42 unit/L LAB CHEMISTRY METHOD 01/26/2025 8:51 AM EDT [facility] Alkaline Phosphatase 55 42 - 121 unit/L LAB CHEMISTRY METHOD 01/26/2025 8:51 AM EDT [facility] Blood Venous blood specimen / Unknown 01/26/2025 6:30 AM EDT 01/26/2025 7:49 AM EDT us Ismael Mayer MD LAB BLOOD ORDERABLES Final Resul t Performing Organization Address City/[facility]/ZIP Co de Phone Number [facility] [address] [place] [address], [place] [phone] * Prostate specific antigen screen (12/22/2024 5:13 AM EDT) PSA 0.41 0.00 - 4.00 ng/mL LAB CHEMISTRY METHOD 12/22/2024 9:04 AM EDT [facility] Blood Venous blood specimen / Unknown 12/22/2024 5:13 AM EDT 12/22/2024 6:16 AM EDT Narrative [facility] - 12/22/2024 9:04 AM EDT The Siemens Advia Centaur Chemiluminescent Immunoassay is used. Results obtained with different assay methods or kits cannot be used interchangeably. Results cannot be interpreted as absolute evidence of the presence or absence of malignant disease. us Ismael Mayer MD LAB BLOOD ORDERABLES Final Resul t Performing Organization Address City/[facility]/ZIP Co de Phone Number [facility] [address] [place] [address], [place] [phone] * SST tube (12/22/2024 5:13 AM EDT) Extra Tube Hold for add-ons. 02/04/2025 8:03 AM EDT [facility] Comment:Auto resulted. Blood Venous blood specimen / Unknown 12/22/2024 5:13 AM EDT 12/22/2024 6:16 AM EDT us Ismael Mayer MD LAB BLOOD ORDERABLES Final Resul t Performing Organization Address City/[facility]/ZIP Co de Phone Number [facility] [address] [place] [address], [place] [phone] * (ABNORMAL) Lipid panel with reflex to direct LDL (12/22/2024 5:13 AM EDT) Cholesterol 125 0 - 200 mg/dL LAB CHEMISTRY METHOD 12/22/2024 7:44 AM EDT [facility] Triglycerides 296(H) 0 - 150 mg/dL LAB CHEMISTRY METHOD 12/22/2024 7:44 AM EDT [facility] HDL 28(L) >=40 mg/dL LAB CHEMISTRY METHOD 12/22/2024 7:44 AM EDT [facility] LDL Calculated 38 0 - 100 mg/dL LAB CHEMISTRY METHOD 12/22/2024 7:44 AM EDT [facility] VLDL Cholesterol Tim 59.2 mg/dL LAB CHEMISTRY METHOD 12/22/2024 7:44 AM EDT [facility] Non HDL Chol. (LDL+VLDL) 97 <145 mg/dL LAB CHEMISTRY METHOD 12/22/2024 7:44 AM EDT [facility] Chol/HDL Ratio 4.5(H) 0.0 - 4.4 LAB CHEMISTRY METHOD 12/22/2024 7:44 AM [facility] Blood Venous blood specimen / Unknown 12/22/2024 5:13 AM EDT 12/22/2024 6:16 AM EDT Ismael Mayer MD LAB BLOOD ORDERABLES Final Resul t [facility] [address] [place] [address], [place] [phone] * (ABNORMAL) Complete blood count (12/22/2024 5:13 AM EDT) WBC 6.5 4.8 - 10.8 K/[facility] LAB HEMETOLOGY METHOD 12/22/2024 7:04 AM [facility] RBC 4.90 4.50 - 5.50 M/mcL LAB HEMETOLOGY METHOD 12/22/2024 7:04 AM [facility] Hemoglobin 13.6 13.5 - 17.5 g/dL LAB HEMETOLOGY METHOD 12/22/2024 7:04 AM [facility] Hematocrit 41.9(L) 42.0 - 54.0 % LAB HEMETOLOGY METHOD 12/22/2024 7:04 AM [facility] MCV 86.0 79.0 - 98.0 FL LAB HEMETOLOGY METHOD 12/22/2024 7:04 AM [facility] MCH 27.9 27.0 - 32.0 pcg LAB HEMETOLOGY METHOD 12/22/2024 7:04 AM [facility] MCHC 32.5 32.0 - 37.0 g/dL LAB HEMETOLOGY METHOD 12/22/2024 7:04 AM [facility] RDW 14.4 11.0 - 15.0 % LAB HEMETOLOGY METHOD 12/22/2024 7:04 AM [facility] Platelets 180 130 - 400 K/mcL LAB HEMETOLOGY METHOD 12/22/2024 7:04 AM [facility] MPV 9.1 7.0 - 11.0 FL LAB HEMETOLOGY METHOD 12/22/2024 7:04 AM [facility] NRBC 0.0 <1.0 % LAB HEMETOLOGY METHOD 12/22/2024 7:04 AM [facility] NRBC Absolute 0.00 <0.10 K/mcL LAB HEMETOLOGY METHOD 12/22/2024 7:04 AM [facility] Blood Venous blood specimen / Unknown 12/22/2024 5:13 AM EDT 12/22/2024 6:16 AM EDT us Ismael Mayer MD LAB BLOOD ORDERABLES Final Resul t Performing Organization Address [facility] Co de Phone Number [facility] [address] [place] [address], [place] [phone] * Thyroid stimulating hormone (12/22/2024 5:13 AM EDT) [facility] TSH 2.09 0.40 - 4.00 mcIU/mL LAB CHEMISTRY METHOD 12/22/2024 9:04 AM EDT [facility] Blood Venous blood specimen / Unknown 12/22/2024 5:13 AM EDT 12/22/2024 6:16 AM EDT us Ismael Mayer MD LAB BLOOD ORDERABLES Final Resul t Performing Organization Address [facility] de Phone Number [facility] [address] [place] [address], [place] [phone] * Thyroxine free (12/22/2024 5:13 AM EDT) [facility] Free T4 1.17 0.70 - 1.80 ng/dL LAB CHEMISTRY METHOD 12/22/2024 9:04 AM EDT [facility] Blood Venous blood specimen / Unknown 12/22/2024 5:13 AM EDT 12/22/2024 6:16 AM EDT us Ismael Mayer MD LAB BLOOD ORDERABLES Final Resul t Performing Organization Address [facility]/ZIP Co de Phone Number [facility] [address] [place] [address], [place] [phone] * (ABNORMAL) Valproic acid level, total (12/22/2024 5:13 AM EDT) [facility] Valproic Acid, Total 49(L) 50 - 100 mcg/mL LAB CHEMISTRY METHOD 12/22/2024 7:44 AM [facility] Blood Venous blood specimen / Unknown 12/22/2024 5:13 AM EDT 12/22/2024 6:16 AM EDT us Ismael Mayer MD LAB BLOOD ORDERABLES Final Resul t [facility] [address] [place] [address], [place] [phone] * (ABNORMAL) Comprehensive metabolic panel (12/22/2024 5:13 AM EDT) Sodium 136 133 - 145 mmol/L LAB CHEMISTRY METHOD 12/22/2024 7:44 AM [facility] Potassium 3.8 3.5 - 5.5 mmol/L LAB CHEMISTRY METHOD 12/22/2024 7:44 AM [facility] Chloride 101 96 - 110 mmol/L LAB CHEMISTRY METHOD 12/22/2024 7:44 AM [facility] CO2 31 21 - 32 mmol/L LAB CHEMISTRY METHOD 12/22/2024 7:44 AM [facility] Anion Gap 4 3 - 11 LAB CHEMISTRY METHOD 12/22/2024 7:44 AM [facility] Glucose 128(H) 70 - 100 mg/dL LAB CHEMISTRY METHOD 12/22/2024 7:44 AM [facility] BUN 19 5 - 25 mg/dL LAB CHEMISTRY METHOD 12/22/2024 7:44 AM [facility] Creatinine 0.64(L) 0.70 - 1.30 mg/dL LAB CHEMISTRY METHOD 12/22/2024 7:44 AM [facility] eGFR 113 >=60 mL/min/1. 73m2 LAB CHEMISTRY METHOD 12/22/2024 7:44 AM [facility] Comment:Calculation based on the Chronic Kidney Disease Epidemiology Collaboration (CKD-EPI) equation refit without adjustment for race. BUN/Creatinine Ratio 29.7 LAB CHEMISTRY METHOD 12/22/2024 7:44 AM [facility] Calcium 9.7 8.5 - 10.5 mg/dL LAB CHEMISTRY METHOD 12/22/2024 7:44 AM [facility] AST (SGOT) 13 10 - 42 unit/L LAB CHEMISTRY METHOD 12/22/2024 7:44 AM [facility] ALT (SGPT) 24 10 - 60 unit/L LAB CHEMISTRY METHOD 12/22/2024 7:44 AM [facility] Alkaline Phosphatase 59 42 - 121 unit/L LAB CHEMISTRY METHOD 12/22/2024 7:44 AM [facility] Total Protein 7.0 6.0 - 8.0 g/dL LAB CHEMISTRY METHOD 12/22/2024 7:44 AM [facility] Albumin 3.6 3.2 - 5.0 g/dL LAB CHEMISTRY METHOD 12/22/2024 7:44 AM [facility] Total Bilirubin 0.3 0.0 - 1.4 mg/dL LAB CHEMISTRY METHOD 12/22/2024 7:44 AM [facility] Blood Venous blood specimen / Unknown 12/22/2024 5:13 AM EDT 12/22/2024 6:16 AM EDT us Ismael Mayer MD LAB BLOOD ORDERABLES Final Resul t [facility] [address] [place] [address], from Last 3 Months Insurance MEDICARE MEDICAID - [place] Care Teams Historian Research Assistant Relationship Specialty Start Date End Date Ismael Mayer MD [address] [place] [address] [address] [place] PCP - General Internal Medicine 10/29/24
[2025-03-18 12:57] VITALS: BP 119/79; PULSE 81; RESP 14; TEMP 36.9; O2SAT 96
--- NOTE | 2025-03-18 17:00 | PC.NURSE ---
RN-RN report given to Marian Green. discharge instructions reviewed.
[2025-03-18 17:01] VITALS: BP 119/79; PULSE 81; RESP 14; TEMP 36.9; O2SAT 96
== END 2025-03-18 17:03 | disposition home or self-care (01) ==
PROVIDERS: Emergency Provider Emergency Medicine
DX: S83.92XA Sprain of unspecified site of left knee, initial encounter (principal); S93.402A Sprain of unspecified ligament of left ankle, initial encounter; W01.0XXA Fall on same level from slipping, tripping and stumbling without subsequent striking against object, initial encounter; Y93.89 Activity, other specified; Y92.129 Unspecified place in nursing home as the place of occurrence of the external cause; Y99.9 Unspecified external cause status
CPT/HCPCS: 73502; 73564; 73610; 99283